=== PATIENT | female | born 1965 | race Caucasian/White ===

== ENCOUNTER 2019-06-06 13:21 | Outpatient (CLI) | payer MEDICARE, SELFPAY ==
--- NOTE | 2019-06-06 13:28 | XR_ITS ---
WS: [id number] LUMBAR SPINE FLEXION AND EXTENSION TECHNIQUE: 3 views of the lumbar spine: Lateral neutral, flexion, and extension views. CLINICAL INFORMATION: SPONDYLOLISTHESIS LUMBAR REGION COMPARISON: FINDINGS: Slight retrolisthesis L3 on L4 and L4 on L5. No instability on flexion-extension. Disc spac e narrowing worse at L3-L4 L4-L5 and L5-S1. Minimal chronic biconcave compression at L3-L5. Moderate facet arthropathy L5-S1. Bony foraminal narrowing. Vascular calcification. XR/XR lumbar spine f/e only [id number] IMPRESSION: No instability on flexion-extension
== END 2019-06-06 13:22 | disposition home or self-care (01) ==
PROVIDERS: Family Provider Internal Medicine; PCP Internal Medicine; Visit Provider Nurse Practitioner
DX: M43.16 Spondylolisthesis, lumbar region (principal)
CPT/HCPCS: 72120

== ENCOUNTER 2019-12-06 13:31 | Outpatient (CLI) | payer MEDICARE, MEDICAID, SELFPAY ==
--- NOTE | 2019-12-06 13:38 | MM_ITS ---
WS: [id number] BILATERAL DIGITAL SCREENING MAMMOGRAM WITH CAD CLINICAL INFORMATION: SCREENING HISTORY: Screening mammogram. No current complaints. COMPARISON: September 28, 2018 TECHNIQUE: Bilateral CC and MLO views. FINDINGS: Fatty-replaced breasts bilaterally. No suspicious focal mass, asymmetry, calcifications, or sfdc architect ural distortion. No evidence of malignancy. Stable tiny punctate calcifications. Breast biopsy marker right areola. MM/[place] [id number] IMPRESSION: BI-RADS: 2-Benign FOLLOW UP: 1 Year Follow-up Recommend return to annual screening mammography.
== END 2019-12-06 13:32 | disposition home or self-care (01) ==
LOC: RADSHAW 13:37
PROVIDERS: PCP Internal Medicine; Visit Provider Internal Medicine
DX: Z12.31 Encounter for screening mammogram for malignant neoplasm of breast (principal)
CPT/HCPCS: 77067

== ENCOUNTER 2020-05-01 14:43 | Outpatient (CLI) | payer MEDICARE, MEDICAID, SELFPAY ==
--- NOTE | 2020-05-01 14:58 | XRR_ITS ---
PROCEDURE INFORMATION: Exam: XR Abdomen, 2 Views Exam date and time: 05/01/2020 3:26 PM Age: 54 years old Clinical indication: Abdominal pain; Acute; Prior surgery; Surgery type: Gb; Patient HX: Diarrhea, abd pain since Wednesday; Additional info: Acute abd pain TECHNIQUE: Imaging protocol: XR of the abdomen. Views: 2 Views. COMPARISON: CR XR KUB [id number] 07/27/2018 8:47 AM FINDINGS: Gastrointestinal tract: Normal. No bowel dilation. There is evidence of cholecystectomy Intraperitoneal space: Normal. No free air. Organs: There is a calcification seen in the projection of the lower pole collecting system of the left kidney measuring 12 mm representing a caliceal stone. This finding was present on prior examination and appears similar Bones/joints: Unremarkable for age. Soft tissues: Chest: Negative for acute cardiac or pulmonary disease. XR/XR acute abdomen series [id number] IMPRESSION: 1. No acute chest abnormality. 2. Negative for acute GI abnormality. 3. Status post cholecystectomy. 4. Stable caliceal stone left kidney
[2020-05-01 15:51] LABS: Basophils % 0.3 %; Eosinophils # 0.1 10^3/uL (0.0-0.8); Eosinophils % 0.4 %; Hematocrit 47.2 % (37.0-47.0); Lymphocytes # 1.3 10^3/uL (0.8-4.8); Lymphocytes % 10.2 %; Mean Corpuscular HGB Conc 31.8 g/dL (30.0-36.0); Mean Corpuscular Hemoglobin 29.7 pg (28.0-34.0); Mean Corpuscular Volume 93.5 fL (81-99); Monocytes # 0.7 10^3/uL (0.2-0.9); Monocytes % 5.3 %; Neutrophils # 10.63 10^3/uL (1.8-7.7); Neutrophils % 83.5 %; Nucleated Red Blood Cells % 0 %; Platelet Count 210 10^3/cmm (130-400); Red Blood Count 5.05 10^6/uL (4.1-5.3); Red Cell Distribution Width 14.7 % (12.1-15.1); White Blood Count 12.7 10^3/uL (4.0-10.0)
[2020-05-01 16:09] LABS: Amylase 27 U/L (28-100); Anion Gap 15.9 (5-19); Blood Urea Nitrogen 12 mg/dL (6-20); Calcium 9.6 mg/dL (8.5-10.5); Carbon Dioxide 25 mmol/L (22-29); Chloride 99 mmol/L (98-107); Glomerular Filtration Rate 75.3 mL/min (90-130); Glucose 151 mg/dL (65-115); Lipase 19 U/L (13-60); Osmolality Calculated 285 mOsm/kg (285-295); Potassium 3.9 mmol/L (3.5-5.1); Sodium 136 mmol/L (136-145)
== END 2020-05-01 14:44 | disposition home or self-care (01) ==
PROVIDERS: PCP Internal Medicine; Visit Provider Nurse Practitioner Family
DX: R10.9 Unspecified abdominal pain (principal); R11.0 Nausea; Z90.49 Acquired absence of other specified parts of digestive tract; N20.0 Calculus of kidney
CPT/HCPCS: 36415; 74022; 80048; 82150; 83690; 85025

== ENCOUNTER 2020-05-01 19:55 | Emergency (ER) | payer MEDICARE, MEDICAID, SELFPAY ==
[2020-05-01 19:58] VITALS: BP 158/81; PULSE 117; RESP 26; TEMP 37.7; O2SAT 94; BMI 41.1
--- NOTE | 2020-05-01 21:14 | W.ED.ABDPA2 ---
HPI - Abdominal Pain General: Chief Complaint: Abdominal Pain Stated Complaint: here earlier/abdominal pain Time Seen by Provider: 05/01/20 21:04 History of Present Illness: HPI narrative: Patient is a 54-year-old female who comes to the ED with abdominal pain, fever, nausea and diarrhea. Past surgical history of hysterectomy and cholecystectomy. Symptoms started on April 28. She rates her abdominal pain a 7 out of 10 and she describes it as a constant achy pain. It is located in the periumbilical region. She says she has had nausea but decreased appetite since pain started. She says her diarrhea is watery. She has had 4-5 episodes of diarrhea today since start of symptoms. Associated Symptoms: Reports diarrhea, fever(s) and nausea; Denies chills, constipation, dysuria, hematochezia, hematuria and vomiting Review of Systems Const: Reports: fever(s) and change in appetite (decrease); Denies: chills or fatigue Eyes: Denies: change in vision or eye discomfort ENMT: Denies: throat pain, odynophagia, nasal discharge or nasal congestion Card: Denies: chest pain, palpitations, edema, swelling of feet/ankles, dyspnea on exertion or orthopnea Resp: Denies: dyspnea, productive cough or non-productive cough GI: Reports: abdominal pain, nausea and diarrhea; Denies: vomiting, constipation or hematochezia : Denies: flank pain, dysuria or hematuria Musc: Denies: neck pain, back pain or extremity swelling Skin/Breast: Denies: rash or new lesions Neuro: Denies: headache(s), numbness in extremities or weakness in extremities PFS ED PFSH: Medical History Depression High cholesterol Hyperthyroidism Type 1 diabetes Social History Smoking and tobacco status: current every day smoker Alcohol intake: never Current occupational status: disabled Physical Exam Const: COMMON NORMALS: patient oriented x3 and alert GENERAL APPEARANCE: cooperative and comfortable NUTRITIONAL APPEARANCE: overweight HENMT: COMMON NORMALS: normocephalic HEAD & SCALP: normocephalic MOUTH: Normal oral and palatal mucosa present and moist mucous membranes abnormal (mild) Details: parched THROAT: posterior oropharynx normal and uvula midline Eye: COMMON NORMALS: Equal, round and reactive pupils present PUPIL: Yes Equal, round and reactive pupils present Neck/C-Spine: COMMON NORMALS: supple GENERAL: Yes normal visual inspection Resp: COMMON NORMALS: normal respiratory effort, No retractions, No use of accessory muscles and clear to auscultation bilaterally AUSCULTATION: clear to auscultation bilaterally Cardio: COMMON NORMALS: regular rate, regular rhythm, S1 normal heart sound present, S2 normal heart sound present, No gallops present (Cardio), No clicks present (Cardio), No murmurs present (Cardio) and Peripheral pulses 2+ throughout RATE: regular rate RHYTHM: regular rhythm HEART SOUNDS: S1 normal heart sound present and S2 normal heart sound present PERIPHERAL PULSES: Peripheral pulses 2+ throughout GI: COMMON NORMALS: Normal to inspection, nondistended, normoactive bowel sounds present, Soft to palpation and no masses PALPATION: Yes Soft to palpation and Yes Tenderness to palpation present (GI) Details: other (Periumbilical tenderness. Negative McBurney's point. Rovsing signs negative.) : COMMON NORMALS: Yes no CVA tenderness BLADDER/KIDNEY EXAM: Yes no CVA tenderness Back/Pelvis: COMMON NORMALS: no CVA tenderness Extremity: COMMON NORMALS: normal to inspection and no pedal edema Neuro: COMMON NORMALS: patient oriented x3 SENSORIUM/ORIENTATION: Yes alert GAIT: Yes Normal gait present Skin: GENERAL SKIN EXAM: dry skin Course Vital Signs: Vital signs: Vital Signs Temperature 99.8 F H 05/01/20 19:58 Pulse Rate 100 05/02/20 00:53 Respiratory Rate 20 H 05/02/20 00:53 Blood Pressure 147/59 05/02/20 00:53 Pulse Oximetry 100 05/02/20 00:53 MDM - Abdominal Pain MDM Narrative: Medical decision making narrative: Patient is a 54-year-old female comes to the ED with abdominal pain, nausea and diarrhea. Periumbilical tenderness upon palpation. Mild signs of dehydration. No other acute findings. White blood cell count 14.7 but rest of CBC and CMP was unremarkable. UA showed no signs of UTI. CT of the abdomen pelvis showed signs of enteritis and no appendicitis seen. Patient was given IV fluids, pain meds and nausea meds while here in the ED and symptoms improved. Patient discharged with a prescription for Bentyl, Cipro, Flagyl, Zofran. Follow-up with PCP in 7 to 10 days. Return to ED precautions given. Patient understood and agreed with plan. Lab Data: Attestation: I reviewed the patient's lab results. Labs: Lab Results 05/01/20 05/01/20 05/01/20 Range/Units 21:34 21:34 22:33 WBC 14.7 H (4.0-10.0) 10^3/ uL RBC 5.00 (4.1-5.3) 10^6/u L Hgb 14.7 (11.5-15.3) g/dL Hct 45.6 (37.0-47.0) % MCV 91.2 (81-99) fL MCH 29.4 (28.0-34.0) pg MCHC 32.2 (30.0-36.0) g/dL RDW 14.6 (12.1-15.1) % Plt Count 216 (130-400) 10^3/c mm MPV 10.7 H (7.4-10.4) fL Neut % (Auto) 84.8 % Lymph % (Auto) 8.0 % Davison % (Auto) 5.6 % Eos % (Auto) 1.0 % Baso % (Auto) 0.3 % Neut # (Auto) 12.47 H (1.8-7.7) 10^3/u L Lymph # (Auto) 1.2 (0.8-4.8) 10^3/u L Davison # (Auto) 0.8 (0.2-0.9) 10^3/u L Eos # (Auto) 0.1 (0.0-0.8) 10^3/u L Baso # (Auto) 0.1 (0.0-0.1) 10^3/u L Nucleated RBC % (a uto) 0 % Nucleated RBCs # 0.0 /100WBC Sodium 134 L (136-145) mmol/L Potassium 3.8 (3.5-5.1) mmol/L Chloride 98 (98-107) mmol/L Carbon Dioxide 22 (22-29) mmol/L Anion Gap 17.8 (5-19) BUN 13 (6-20) mg/dL Creatinine 0.9 (0.5-0.9) mg/dL GFR Calculation 65.8 L (90-130) mL/min Glucose 183 H (65-115) mg/dL Calculated Osmolal ity 283 L (285-295) mOsm/k g Calcium 9.5 (8.5-10.5) mg/dL Total Bilirubin 0.5 (0.15-1.2) mg/dL AST 35 H (0-32) U/L ALT 28 (0-33) U/L Alkaline Phosphata se 66 (35-105) IU/L Total Protein 7.5 (6.6-8.7) g/dL Albumin 3.9 (3.5-5.2) g/dL Globulin 3.6 (1.3-4.6) g/dL Lipase 15 (13-60) U/L Urine Color Gooding (Yellow) Urine Appearance Turbid (CLEAR) Urine pH 5 (5-7) Ur Specific Gravit y 1.030 (1.005-1.030) Urine Protein 1+ H (Negative) Urine Glucose (UA) Norm (Normal) Urine Ketones 1+ H (Negative) Urine Blood Neg (Negative) Urine Nitrate Negative (Negative) Urine Bilirubin 1+ H (Negative) Urine Urobilinogen Norm (Negative) mg/dL Ur Leukocyte Noemi ase Negative (Negative) Urine RBC 5-10 H (0-2) /hpf Urine WBC None (0-5) /hpf Ur Squamous Epith Cells 25-40 H (0-5) /hpf Amorphous Sediment 4+ /hpf Urine Bacteria 2+ H (NONE) /hpf Imaging Data ^: CT Abd/Pel: Attestation: I personally reviewed and interpreted this imaging study as follows: Radiologist's impression: [address] [address] [address] Scan Report Signed Patient: Josi Batista Unit #: [id number] : 1965 Age/Sex: 54 / F ADM Date: 05/01/20 Loc: ER Room/Bed: Attending Dr: Ordering Provider/Ordering MD: Denzel Obregon Date of Service: 05/01/20 Procedure(s): CT abdomen pelvis w con* [id number] Accession Number(s): [id number] Report Number: [id number] PROCEDURE INFORMATION: Exam: CT Abdomen And Pelvis With Contrast Exam date and time: 05/01/2020 9:36 PM Age: 54 years old Clinical indication: Nausea and other: Diarrhea; Abdominal pain; Epigastric; Prior surgery; Surgery type: Gb; Additional info: Abdominal pain, nausea and diarrhea TECHNIQUE: Imaging protocol: Computed tomography of the abdomen and pelvis with intravenous contrast. Radiation optimization: All CT scans at this facility use at least one of these dose optimization techniques: automated exposure control; mA and/or kV adjustment per patient size (includes targeted exams where dose is matched to clinical indication); or iterative reconstruction. Contrast material: OMNI 300; Contrast volume: 95 ml; Contrast route: INTRAVENOUS (IV); COMPARISON: CT abdomen pelvis w con* [id number] 02/27/2015 1:12 PM RADIATION DOSE METRICS: Total DLP (mGy-cm): 1808.17 FINDINGS: Liver: There is a diffuse decrease in hepatic parenchymal density, consistent with moderate fatty infiltration. Gallbladder and bile ducts: There has been a cholecystectomy. Pancreas: The pancreas is normal. Spleen: The spleen is normal. Adrenal glands: The adrenal glands are normal. Kidneys and ureters: There are small simple cysts in both kidneys. There are multiple bilateral renal collecting system calcifications. There is no evidence of hydronephrosis. There is no stone along the course of either ureter. Stomach and bowel: There is some mild inflammatory change in the fat surrounding the cecum and there is mild wall thickening involving the cecum and proximal ascending colon. There is an abnormal loop of small bowel in the mid abdomen with wall thickening and increased mural enhancement such as an image number 46 which could represent some focal enteritis or inflammatory bowel disease. There is no evidence of colitis/diverticulitis. There is mild fluid dilatation of some small bowel loops in the mid abdomen proximal to the abnormal loop of ileum which could represent some focal ileus or mild partial obstruction. Appendix: A normal appendix is identified. Intraperitoneal space: There is no evidence of focal peritoneal fluid collections to suggest abscess formation. Vasculature: The aorta demonstrates mild atherosclerotic calcification. There is no evidence of an abdominal aortic aneurysm. Lymph nodes: There is no evidence of lymphadenopathy. Urinary bladder: Unremarkable as visualized. Reproductive: There has been a hysterectomy. Bones/joints: The lumbar spine demonstrates mild degenerative changes at multiple levels. Soft tissues: Unremarkable. CT/CT abdomen pelvis w con* [id number] IMPRESSION: 1. Focal abnormal loop of small bowel in the mid abdomen which could represent some focal enteritis or inflammatory bowel disease. Clinical correlation and follow-up is suggested. 2. Mild pericecal inflammatory changes and thickening of the right colon which could represent some enteritis. 3. Normal appendix 4. Nephrolithiasis COMMENTS: Consistent with the [employer]'s Incidental Findings Committee white paper (J Am Jasmin Radiol 2018): Any incidental renal lesion less than 1 cm or classified as too small to characterize, or any incidental cystic renal lesion characterized as simple-appearing, is likely benign. No follow-up imaging is recommended for these lesions per consensus recommendations based on imaging criteria. Radiation Dose CTDIVOL = (mGy): DLP = 1808.17 (mGy-cm) Dictated By: Srikanth Enriquez Signed By: Srikanth Enriquez Signed Date/Time: 05/01/202209 DD/ 07 Discharge Plan Discharge Patient Disposition: Home Clinical Impression: Gastroenteritis Condition: Stable Prescriptions: New ciprofloxacin HCl 500 mg tablet 500 mg PO BID 7 Days Qty: 14 RF: 0 ondansetron HCl 4 mg tablet 4 mg PO Q8H Qty: 20 RF: 0 metronidazole 250 mg tablet 500 mg PO TID 7 Days Qty: 42 RF: 0 dicyclomine 20 mg tablet 20 mg PO TID Qty: 30 RF: 0 No Action (DME) diabetic shoes with moded inserts See Rx Instructions .Route .MEDSUPPLY Qty: 1 RF: 0 hydrocortisone [Anti-Itch (HC)] 1 % ointment 1 applic topical BID PRN (Reason: skin irritation) Qty: 30 RF: 0 metformin 500 mg tablet 500 mg PO BID@0900,2100 RF: 0 atorvastatin 80 mg tablet 60 mg PO DAILY@0900 RF: 0 omeprazole 40 mg capsule,delayed release(DR/EC) 40 mg PO DAILY@0900 RF: 0 levothyroxine 25 mcg tablet 25 mcg PO DAILY@0900 RF: 0 albuterol sulfate 90 mcg/actuation HFA aerosol inhaler See Rx Instructions .ROUTE .COMPLEX RF: 0 fluticasone propionate 50 mcg/actuation spray,suspension See Rx Instructions .ROUTE .COMPLEX RF: 0 lisinopril 2.5 mg tablet 2.5 mg PO DAILY@0900 RF: 0 duloxetine 60 mg capsule,delayed release(DR/EC) 60 mg PO BID@0900,2100 RF: 0 Discharge Orders: Discharge ED (Routine); Ordered 05/01/20 Ordered By: Denzel Obregon Referrals: Ana Antoine MD [Primary Care Provider] - Discharge Diet: Advance as tolerated Discharge Activity: Resume usual activity Patient Instructions: Gastroenteritis (ED) Activity Restrictions/Additional Instructions: Follow-up with medical provider as directed in 7-10 days. Take medications as prescribed. Drink plenty of fluids and stay hydrated. Return to the ER or your medical provider if condition worsens after being on antibiotics for 3-4 days. Please read and understand discharge instructions. If any questions, please ask. Coding Level of Care Code ED [employer] Bever[employer] Service Manager for [employer] Fwd Exam Comprehensive
[2020-05-01] MEDS: iohexol 300 mg/mL 100 mL Btl IV (21:39)
[2020-05-01 21:41] LABS: Basophils # 0.1 10^3/uL (0.0-0.1); Basophils % 0.3 %; Eosinophils # 0.1 10^3/uL (0.0-0.8); Hematocrit 45.6 % (37.0-47.0); Hemoglobin 14.7 g/dL (11.5-15.3); Lymphocytes # 1.2 10^3/uL (0.8-4.8); Mean Corpuscular HGB Conc 32.2 g/dL (30.0-36.0); Mean Corpuscular Hemoglobin 29.4 pg (28.0-34.0); Mean Corpuscular Volume 91.2 fL (81-99); Mean Platelet Volume 10.7 fL (7.4-10.4); Monocytes # 0.8 10^3/uL (0.2-0.9); Monocytes % 5.6 %; Neutrophils # 12.47 10^3/uL (1.8-7.7); Neutrophils % 84.8 %; Nucleated Red Blood Cells % 0 %; Platelet Count 216 10^3/cmm (130-400); Red Cell Distribution Width 14.6 % (12.1-15.1); White Blood Count 14.7 10^3/uL (4.0-10.0)
[2020-05-01 21:57] LABS: Alanine Aminotransferase 28 U/L (0-33); Albumin Level 3.9 g/dL (3.5-5.2); Alkaline Phosphatase 66 IU/L (35-105); Aspartate Amino Transferase 35 U/L (0-32); Blood Urea Nitrogen 13 mg/dL (6-20); Calcium 9.5 mg/dL (8.5-10.5); Carbon Dioxide 22 mmol/L (22-29); Chloride 98 mmol/L (98-107); Globulin 3.6 g/dL (1.3-4.6); Glomerular Filtration Rate 65.8 mL/min (90-130); Glucose 183 mg/dL (65-115); Lipase 15 U/L (13-60); Osmolality Calculated 283 mOsm/kg (285-295); Sodium 134 mmol/L (136-145); Total Bilirubin 0.5 mg/dL (0.15-1.2); Total Protein 7.5 g/dL (6.6-8.7)
[2020-05-01 22:06] LABS: Anion Gap 17.8 (5-19); Potassium 3.8 mmol/L (3.5-5.1)
[2020-05-01] MEDS: metroNIDAZOLE 500 MG Tablet PO (22:46)
[2020-05-01] MEDS: ciprofloxacin 500 mg Tablet PO (22:46)
[2020-05-01] MEDS: sodium chloride 0.9% 1,000 ML 999 ML IV (22:47)
[2020-05-01] MEDS: ondansetron 2 mg/ML SDV 2 mL 4 MG IVP (22:47)
[2020-05-01 22:49] VITALS: RESP 16; O2SAT 93
[2020-05-01] MEDS: morphine 4 mg/mL SDV 1 mL IVP (22:49)
[2020-05-01 23:06] LABS: Add Urine Microscopic? YES; Bilirubin Urine 1+ (Negative); Blood Urine Neg (Negative); Glucose Urine UA Norm (Normal); Ketones Urine 1+ (Negative); Leukocyte Esterase Urine Negative (Negative); Nitrate Urine Negative (Negative); Protein Urine 1+ (Negative); Urine Appearance Turbid (CLEAR); Urine Color Orange (Yellow); Urobilinogen Urine Norm (Negative); pH Urine 5 (5-7)
[2020-05-01 23:10] LABS: Squamous Epithelial Cell Urine 25-40 /hpf (0-5)
[2020-05-01 23:11] LABS: Add Urine Culture? No; Amorphous Sediment Urine 4+ /hpf; Bacteria Urine 2+ /hpf
[2020-05-02 00:50] VITALS: RESP 20; O2SAT 97
[2020-05-02] MEDS: morphine 4 mg/mL SDV 1 mL IVP (00:50)
[2020-05-02 00:53] VITALS: BP 147/59; PULSE 100; RESP 20; O2SAT 100
--- NOTE | 2020-05-02 01:57 | PC.NURSE ---
i agree with the assessment
== END 2020-05-02 01:58 | disposition home or self-care (01) ==
PROVIDERS: Emergency Medicine; Emergency Provider Physician Assistant; PCP Internal Medicine
DX: K52.9 Noninfective gastroenteritis and colitis, unspecified (principal); E10.9 Type 1 diabetes mellitus without complications; F17.210 Nicotine dependence, cigarettes, uncomplicated; R10.9 Unspecified abdominal pain; R11.0 Nausea; Z90.49 Acquired absence of other specified parts of digestive tract; N20.0 Calculus of kidney
CPT/HCPCS: 12345; 36415; 74022; 74177; 80048; 80053; 81001; 82150; 83690; 85025; 96361; 96374; 96375; 96376; 99282; 99283; J2270; J2405; J7030; Q9967

== ENCOUNTER 2020-05-31 11:42 | Outpatient (CLI) | payer MEDICARE, MEDICAID, SELFPAY ==
--- NOTE | 2020-05-31 11:49 | USCV_ITS ---
Josi Batista Age: 55 Gender: F : 1965 Exam Date: 05/31/2020 11:50 Ordering Phys: Ana Antoine MD Technologist: Felisa Robles Exam Location: [facility] – [place] Indication: DECREASED RIGHT DORALIS PEDIS PULSE Risk Factors: Previous Vascular Surgery: RIGHT LEFT BP: 135.0 / BP: 125.0/ 0 0 Waveform Velocity (cm/s) Velocity (cm/s) Waveform Biphasic 132.5 Iliac Prox Triphasic 135.6 Iliac Mid Triphasic 138.3 Iliac Distal Triphasic 88.2 BUSINESS SERVICES SPECIALIST SALES Triphasic 98.1 SFA Prox Triphasic 93.7 SFA Mid Triphasic 75.8 SFA Dist Triphasic 44.9 POP Triphasic 59.8 DOCK SUPERVISOR Triphasic 59.8 DPA 1.1 RACHEL FINDINGS RT DOCK SUPERVISOR- 140 RT DPA- 145 Normal Doppler waveforms with normal Doppler velocities on the right lower extremity. Abnormal left and right brachial Doppler studies CONCLUSIONS No significant arterial obstruction in the right lower extremity. Abnormal Doppler waveforms of the brachial arteries bilaterally, may suggest occlusive disease. Clinical correlation is recommended Dr Ariel Bravo MD [facility] (Electronically Signed) Final Date: 31 May 2020 18:20 S
== END 2020-05-31 11:43 | disposition home or self-care (01) ==
LOC: US 11:43
PROVIDERS: PCP Internal Medicine; Visit Provider Internal Medicine
DX: R09.89 Other specified symptoms and signs involving the circulatory and respiratory systems (principal)
CPT/HCPCS: 93926

== ENCOUNTER 2020-07-03 14:41 | Outpatient (CLI) | payer MEDICARE, MEDICAID, SELFPAY ==
--- NOTE | 2020-07-03 15:18 | CT_ITS ---
WS: [id number] CTA THORACIC AORTA WITH AND WITHOUT CONTRAST. HISTORY: PERIPHERAL ARTERY INSUFFICIENCY, TECHNIQUE: CT imaging of the thorax is performed with and without contrast. After noncontrast imaging is performed, CT angiogram is performed during injection of Omnipaque 300; 95 mL IV.. Sagittal and c oronal reconstructions, sagittal and coronal MIP imaging is submitted. All CT scans at [facility] use at least one of these dose optimization techniques: automated exposure control; mA and/o r kV adjustment per patient size (includes targeted exams where dose is matched to clinical indicatio n); or iterative reconstruction. DLP: 1295.15 mGycm COMPARISON: None available. Study was performed on 2 consecutive days in order to fully evaluate the aortic arch and origin of th e subclavian arteries. Focal areas of calcification at the origin of the LEFT subclavian artery from the arch and also at th e origin of the RIGHT subclavian artery from the innominate. Stenosis involving the proximal RIGHT subclavian artery just under 50%. Stenosis involving the origin of the LEFT subclavian artery 70-80%. Mild atherosclerotic changes at the aortic arch. Normal size aorta and pulmonary artery. There is aileen e very mild groundglass attenuation throughout both lungs which is probably a typical for end airways disease or smoking history. No pneumonia or mass. No pleural effusion. There is no adrenal mass. Laxmi or cholecystectomy. Incompletely visualized cyst in the upper RIGHT kidney measures 2.[address]/CT angio chest [id number] IMPRESSION: 1. Focal calcified plaque involving the origin of the LEFT subclavian artery r esulting in 70-80% stenosis. 2. Focal calcified plaque at the origin of the RIGHT subclavian artery resulti ng in just under 50% stenosis.
[2020-07-03] MEDS: iohexol 350 mg/mL 100 mL Btl IV (15:39)
== END 2020-07-03 14:42 | disposition home or self-care (01) ==
PROVIDERS: PCP Internal Medicine; Visit Provider Internal Medicine
DX: I73.9 Peripheral vascular disease, unspecified (principal); I70.8 Atherosclerosis of other arteries
CPT/HCPCS: 71275; Q9967

== ENCOUNTER 2020-08-05 07:41 | Outpatient (CLI) | payer MEDICARE, SELFPAY ==
--- NOTE | 2020-08-05 07:51 | USCV_ITS ---
Josi Batista Age: 55 Gender: F : 1965 Exam Date: 08/05/2020 08:11 Ordering Phys: Ana Antoine MD Technologist: FLO Exam Location: [facility] [place] Indication: SUBCLAVIAN STENOSIS Risk Factors: Previous Vascular Surgery: Right Brachial BP: / Left Brachial BP: / Right Left Velocity (cm/s) Spectral Plaque Velocity (cm/s) Spectral Plaque Syst/Diast Broadening Syst/Diast Broadening 106.90/15.40 Prox CCA 99.00 / 22.90 106.90/24.30 Mid CCA 71.30 / 21.40 47.30/ 11.80 Distal CCA 56.70 / 18.60 59.50/ 23.20 Prox ICA 45.40 / 18.40 70.60/ 23.20 Mid ICA 71.00 / 21.70 92.60/ 33.10 Distal ICA 108.30/ 28.70 118.00 ECA 120.20 0.87 ICA/CCA 1.52 Antegrade Vertebral Antegrade 46.30/ 18.70 cm/s 44.80/ 17.00 cm/s Tri Subclavian Tri 159.1 126.8 0 0 FINDINGS Comparison: none available. No significant elevation of systolic or diastolic velocities. Waveforms are normal. Minimal bilateral, atherosclerosis with no elevation of velocity. CONCLUSIONS Bilateral ICA stenosis less than 50%. Mild carotid atherosclerosis. Dr. Teri Hallman DO (Electronically Signed) Final Date: 05 August 2020 09:07 S
== END 2020-08-05 07:42 | disposition home or self-care (01) ==
LOC: US 07:48
PROVIDERS: PCP Internal Medicine; Visit Provider Internal Medicine
DX: I70.8 Atherosclerosis of other arteries (principal); I65.23 Occlusion and stenosis of bilateral carotid arteries
CPT/HCPCS: 93880

== ENCOUNTER 2020-08-07 12:05 | Outpatient (CLI) | payer MEDICARE, SELFPAY ==
--- NOTE | 2020-08-07 12:15 | XR_ITS ---
WS: [id number] ABDOMEN 1 VIEW(S) HISTORY: N20.9 - Urinary calculus, unspecified COMPARISON: 05/01/2020 Normal bowel gas pattern. 9 mm calcification projects over the LEFT abdomen. This calcification is within the inferior pole of the LEFT kidney on a prior CT. No bone abnormality. Prior cholecystectomy. XR/XR KUB [id number] IMPRESSION: LEFT nephrolithiasis unchanged. No calcification identified in the RIGHT kidney today.
== END 2020-08-07 12:06 | disposition home or self-care (01) ==
LOC: RAD 12:10
PROVIDERS: PCP Internal Medicine; Visit Provider Urology
DX: N20.0 Calculus of kidney (principal)
CPT/HCPCS: 74018; 81003

== ENCOUNTER → 2020-08-28 10:01 | Outpatient (BNVA) | payer MEDICARE, SELFPAY | PROVIDERS: PCP Internal Medicine; Visit Provider Internal Medicine | DX: Z01.812 Encounter for preprocedural laboratory examination (principal); Z20.822 Contact with and (suspected) exposure to COVID-19 | CPT/HCPCS: 87635 ==

== ENCOUNTER 2020-09-04 07:10 | Outpatient (CLI) | payer MEDICARE, MEDICAID, SELFPAY ==
--- NOTE | 2020-09-04 12:48 | PFTS_ITS ---
Date of Study:09/04/20 Date of Dictation: 09/05/2020 MECHANICS: Prebronchodilator forced vital capacity (FVC) is normal. Prebronchodilator forced expiratory volume in one second (FEV1) is normal. FEV1/FVC is normal. FLOW VOLUME LOOP: Normal . LUNG VOLUMES: Not measured DIFFUSING CAPACITY FOR CARBON MONOXIDE: Not measured . INTERPRETATION: The spirometry normal. MTDD
== END 2020-09-04 07:11 | disposition home or self-care (01) ==
PROVIDERS: PCP Internal Medicine; Visit Provider Internal Medicine
DX: F17.200 Nicotine dependence, unspecified, uncomplicated (principal)
CPT/HCPCS: 94060; J7611

== ENCOUNTER → 2022-02-24 09:16 | Outpatient (BNVA) | payer MEDICARE, MEDICAID, SELFPAY | PROVIDERS: PCP Internal Medicine; Visit Provider Podiatrist Foot & Ankle Surgery | DX: M20.21 Hallux rigidus, right foot (principal); M20.22 Hallux rigidus, left foot; E11.42 Type 2 diabetes mellitus with diabetic polyneuropathy; M21.619 Bunion of unspecified foot; M21.41 Flat foot [pes planus] (acquired), right foot; M21.42 Flat foot [pes planus] (acquired), left foot; M20.41 Other hammer toe(s) (acquired), right foot; M20.42 Other hammer toe(s) (acquired), left foot; L60.3 Nail dystrophy; L84 Corns and callosities; Z79.84 Long term (current) use of oral hypoglycemic drugs | CPT/HCPCS: 11056; 11721 ==

== ENCOUNTER 2022-03-09 08:08 | Outpatient (CLI) | payer MEDICARE, MEDICAID, SELFPAY ==
--- NOTE | 2022-03-09 08:19 | MM_ITS ---
WS: [id number] BILATERAL SCREENING DIGITAL TOMOSYNTHESIS MAMMOGRAM WITH CAD HISTORY: SCREENING COMPARISON: 12/06/2019 and 09/28/2018 Bilateral CC and MLO views with tomosynthesis and synthetic mammography submitted. Computer aided det ection analyzed. Breast composition: There are scattered areas of fibroglandular density. No suspicious masses, microc alcifications or architectural distortion. Scattered calcifications. Prior RIGHT breast biopsy clip a jamilancelier. MM/[place] [id number] IMPRESSION: BI-RADS: 2-Benign FOLLOW UP: 1 Year Follow-up
== END 2022-03-09 08:09 | disposition home or self-care (01) ==
LOC: RAD 08:09
PROVIDERS: PCP Nurse Practitioner Family; Visit Provider Nurse Practitioner Family
DX: Z12.31 Encounter for screening mammogram for malignant neoplasm of breast (principal)
CPT/HCPCS: 77063; 77067

== ENCOUNTER → 2022-06-18 08:24 | Outpatient (BNVA) | payer MEDICARE, MEDICAID, SELFPAY | PROVIDERS: PCP Nurse Practitioner Family; Visit Provider Podiatrist Foot & Ankle Surgery | DX: E11.8 Type 2 diabetes mellitus with unspecified complications (principal); M20.21 Hallux rigidus, right foot; M20.22 Hallux rigidus, left foot; E11.42 Type 2 diabetes mellitus with diabetic polyneuropathy; M21.41 Flat foot [pes planus] (acquired), right foot; M21.42 Flat foot [pes planus] (acquired), left foot; M20.41 Other hammer toe(s) (acquired), right foot; M20.42 Other hammer toe(s) (acquired), left foot; L60.3 Nail dystrophy; L84 Corns and callosities; Z79.84 Long term (current) use of oral hypoglycemic drugs; M21.619 Bunion of unspecified foot | CPT/HCPCS: 11056; 11721 ==

== ENCOUNTER → 2022-06-23 12:31 | Outpatient (BNVA) | payer MEDICARE, MEDICAID, SELFPAY | PROVIDERS: PCP Nurse Practitioner Family; Referring Provider Nurse Practitioner Family; Visit Provider Otolaryngology | DX: J32.9 Chronic sinusitis, unspecified (principal); R05.3 Chronic cough; R09.89 Other specified symptoms and signs involving the circulatory and respiratory systems; K21.9 Gastro-esophageal reflux disease without esophagitis; E66.01 Morbid (severe) obesity due to excess calories; Z68.41 Body mass index [BMI] 40.0-44.9, adult; F17.200 Nicotine dependence, unspecified, uncomplicated | CPT/HCPCS: 99203 ==

== ENCOUNTER 2022-07-16 08:17 | Outpatient (CLI) | payer MEDICARE, MEDICAID, SELFPAY ==
--- NOTE | 2022-07-16 08:25 | CT_ITS ---
WS: [id number] CT CHEST WITH INTRAVENOUS CONTRAST HISTORY: SHORT OF BREATH TECHNIQUE: Contiguous 5 mm axial imaging performed on the thorax. Coronal and sagittal reformats are submitted. All CT scans at [facility] use at least one of these dose optimization techniques: automated exposure control; mA and/or kV adjustment per patient size (includes targeted exams where dose is matched to clinical indication); or iterative reconstruction. CONTRAST: Omnipaque 350; 95 mL IV. DLP: 706.70 mGy.cm COMPARISON: 07/03/2020 Lungs and central airway: Mild pulmonary hyperexpansion. There is mild diffuse groundglass attenuatio n. No mass or nodule. Pleura: Normal. No pleural effusion. Heart and pericardium: Very mild RIGHT heart enlargement. Mild flattening of the interventricular sep jose. Mediastinum and adriana: No mediastinum or hilar adenopathy. Vessels: Mild dilatation of the pulmonary artery. Calcified plaque in the origin of the LEFT subclavi an artery. Chest wall and lower neck: No soft tissue masses. Upper abdomen: Enlarged liver with hepatic steatosis. Prior cholecystectomy. The entire liver is not included on this CT. New lobulated nodule measuring 12 x 13 mm in the upper pole LEFT kidney. Hounsfi eld units are low suggesting this is a cyst. Osseous structures: No destructive process. CT/CT chest w con* [id number] IMPRESSION: 1. Mild pulmonary hyperexpansion with no definite mass or consolidation. 2. Mild enlargement of the RIGHT heart with pulmonary artery dilatation. 3. Mild diffuse groundglass attenuation. Consider hypersensitivity pneumonitis or end airways small vessel disease. 4. New 12 x 13 mm cyst upper pole LEFT kidney.
[2022-07-16] MEDS: iohexol 350 mg/mL 500 mL Btl (per mL) IV (08:45)
== END 2022-07-16 08:18 | disposition home or self-care (01) ==
LOC: RAD 08:19
PROVIDERS: PCP Nurse Practitioner Family; Visit Provider Nurse Practitioner Family
DX: R06.02 Shortness of breath (principal); N28.1 Cyst of kidney, acquired; I51.7 Cardiomegaly
CPT/HCPCS: 71260; Q9967

== ENCOUNTER → 2022-07-21 08:28 | Outpatient (BNVA) | payer MEDICARE, MEDICAID, SELFPAY | PROVIDERS: PCP Nurse Practitioner Family; Visit Provider Otolaryngology | DX: J32.9 Chronic sinusitis, unspecified (principal); R09.89 Other specified symptoms and signs involving the circulatory and respiratory systems | CPT/HCPCS: 99213 ==

== ENCOUNTER 2022-08-06 08:39 | Outpatient (CLI) | payer MEDICARE, MEDICAID, SELFPAY ==
--- NOTE | 2022-08-06 09:00 | XR_ITS ---
WS: [id number] Exam: XR KUB [id number] Date/Time of Exam: 08/06/2022 9:08 AM Reason For Exam: Renal Stone No bowel obstruction or free air. Calcifications superimpose both kidneys and apparently represent kn own renal stones. The largest calcifications in the lower pole the left kidney and measures 1.3 cm at greatest diameter. Signs of prior cholecystectomy. No sign of organ enlargement. Regional bony eleme nts are intact. XR/XR KUB [id number] IMPRESSION: 1. Calcifications superimpose both kidneys and apparently represent known renal stones. 2. No acute abdominal process.
== END 2022-08-06 08:40 | disposition home or self-care (01) ==
PROVIDERS: PCP Nurse Practitioner Family; Visit Provider Urology
DX: N20.0 Calculus of kidney (principal); N39.0 Urinary tract infection, site not specified; N28.9 Disorder of kidney and ureter, unspecified; N39.46 Mixed incontinence
CPT/HCPCS: 74018; 81003; 99213

== ENCOUNTER → 2022-08-27 07:53 | Outpatient (BNVA) | payer MEDICARE, MEDICAID, SELFPAY | PROVIDERS: PCP Nurse Practitioner Family; Visit Provider Podiatrist Foot & Ankle Surgery | DX: E11.42 Type 2 diabetes mellitus with diabetic polyneuropathy (principal); L60.3 Nail dystrophy; M20.21 Hallux rigidus, right foot; M20.22 Hallux rigidus, left foot; M21.41 Flat foot [pes planus] (acquired), right foot; M21.42 Flat foot [pes planus] (acquired), left foot; M20.41 Other hammer toe(s) (acquired), right foot; M20.42 Other hammer toe(s) (acquired), left foot; Z79.84 Long term (current) use of oral hypoglycemic drugs; M21.619 Bunion of unspecified foot | CPT/HCPCS: 11056; 11721 ==

== ENCOUNTER 2022-09-10 12:40 | Outpatient (CLI) | payer MEDICARE, MEDICAID, SELFPAY ==
--- NOTE | 2022-09-10 13:04 | XR_ITS ---
WS: [id number] SCREENING DEXA SCAN [facility] CLINICAL INFORMATION: POSTMENOPAUSAL COMPARISON: None. FINDINGS: The L1-L4 bone mineral density measures 1.5. This corresponds to a T score score of 2.7 and Z score o f 2.3. Left femoral neck bone mineral density measures 1.230 g/cm2. This corresponds to a T score of 1.8 and Z score of 1.6. Right femoral neck bone mineral density measures 1.177 g/cm2. This corresponds to a T score 1.3of and Z score of 1.2. Mean femoral neck bone mineral density measures 1.204 g/cm2. This corresponds to a T score of 1.6 and Z score of 1.4. XR/XR DEXA axial skeleton* [id number] IMPRESSION: Normal bone mineralization. Patient's FRAX calculated 10 year probability for major osteoporotic fracture i s 4.5 % and osteoporotic hip fracture is 0.2%.
== END 2022-09-10 12:41 | disposition home or self-care (01) ==
LOC: RAD 12:45
PROVIDERS: PCP Nurse Practitioner Family; Visit Provider Nurse Practitioner Family
DX: Z78.0 Asymptomatic menopausal state (principal)
CPT/HCPCS: 77080

== ENCOUNTER → 2022-09-22 07:55 | Outpatient (BNVA) | payer MEDICARE, MEDICAID, SELFPAY | PROVIDERS: PCP Nurse Practitioner Family; Visit Provider Otolaryngology | DX: J32.9 Chronic sinusitis, unspecified (principal); R09.89 Other specified symptoms and signs involving the circulatory and respiratory systems; K21.9 Gastro-esophageal reflux disease without esophagitis; E66.01 Morbid (severe) obesity due to excess calories; Z68.41 Body mass index [BMI] 40.0-44.9, adult; F17.200 Nicotine dependence, unspecified, uncomplicated | CPT/HCPCS: 99214 ==

== ENCOUNTER 2022-10-15 08:23 | Outpatient (CLI) | payer MEDICARE, MEDICAID, SELFPAY ==
--- NOTE | 2022-10-15 08:45 | US_ITS ---
WS: [id number] ULTRASOUND RENAL TECHNIQUE: Ultrasound examination of both kidneys. CLINICAL INFORMATION: LEFT RENAL LESION COMPARISON: CT abdomen pelvis [address] chest July 16, 2022 FINDINGS: Technically difficult examination due to body habitus and bowel gas. RIGHT: Right kidney is normal in size and appearance. Echogenicity: Normal. Cortical thickness: 1.1 cm; Normal. Hydronephrosis: None. Perinephric fluid: None. Right kidney measures: 12.3 cm x 5.8 cm x 5.3 cm. LEFT: Left kidney is normal in size and appearance. Echogenicity: Normal. Cortical thickness: 1.9 cm; Normal. Hydronephrosis: None. Perinephric fluid: None. Left kidney measures: 16.1 cm x 7.0 cm x 5.4 cm. Normal visualized aorta. US/US renal BI* [id number] IMPRESSION: Difficult examination due to bowel gas and body habitus 1. No hydronephrosis in either kidney. 2. RIGHT upper pole renal cyst measuring 1.3 x 1.2 x 1.6 cm with a simple appe arance. 3. Tiny bilateral nonobstructing renal parenchymal calculi. 4. Bladder is decompressed. 5. No visualized lesions in the LEFT kidney. Recently described lesion upper p ole LEFT kidney on the chest CT is not able to be visualized on this somewhat l imited study. This can be followed up with contrast-enhanced CT abdomen pelvis for better anatomic detail.
== END 2022-10-15 08:24 | disposition home or self-care (01) ==
LOC: RAD 08:24
PROVIDERS: PCP Nurse Practitioner Family; Visit Provider Urology
DX: N39.0 Urinary tract infection, site not specified (principal); N28.9 Disorder of kidney and ureter, unspecified; N28.1 Cyst of kidney, acquired
CPT/HCPCS: 76770; 81003; 99213

== ENCOUNTER → 2022-10-19 09:03 | Outpatient (BNVA) | payer MEDICARE, MEDICAID, SELFPAY | PROVIDERS: PCP Nurse Practitioner Family; Visit Provider Internal Medicine Pulmonary Disease | DX: R06.02 Shortness of breath (principal); J30.2 Other seasonal allergic rhinitis; R06.09 Other forms of dyspnea; R05.3 Chronic cough; E66.01 Morbid (severe) obesity due to excess calories; Z68.41 Body mass index [BMI] 40.0-44.9, adult; F17.200 Nicotine dependence, unspecified, uncomplicated; K21.9 Gastro-esophageal reflux disease without esophagitis; J44.9 Chronic obstructive pulmonary disease, unspecified | CPT/HCPCS: 36415; 80053; 82785; 85025; 86003 ==

== ENCOUNTER 2022-10-28 08:01 | Outpatient (CLI) | payer MEDICARE, MEDICAID, SELFPAY ==
[2022-10-28 08:27] VITALS: PULSE 99; RESP 18; O2SAT 95
[2022-10-28] MEDS: albuterol 2.5 mg/3 mL Neb INHALATION (08:27)
[2022-10-28 08:32] VITALS: PULSE 92
== END 2022-10-28 08:02 | disposition home or self-care (01) ==
LOC: RT 08:03
PROVIDERS: PCP Nurse Practitioner Family; Visit Provider Internal Medicine Pulmonary Disease
DX: R06.02 Shortness of breath (principal); F17.210 Nicotine dependence, cigarettes, uncomplicated; R94.2 Abnormal results of pulmonary function studies
CPT/HCPCS: 94060; 94618; 94726; 94729; J7613

== ENCOUNTER 2022-11-05 07:53 | Outpatient (CLI) | payer MEDICARE, MEDICAID, SELFPAY ==
--- NOTE | 2022-11-05 08:00 | USCV_ITS ---
Lester Josi Age: 57 Gender: F : 1965 Exam Date: 11/05/2022 08:14 Ordering Phys: Axel Henry MD Technologist: Mauricio Batista Exam Location: [facility] – [place], [place] Indication: Check pulmonary art pressure BP: 165 / 85 HR: 85 Rhythm: Sinus Technical Quality: Adequate MEASUREMENTS (Male / Female) Normal Values 2D ECHO LVOT Diameter 2.1 cm LV Ejection Fraction MOD 2C 71.7 % LV Ejection Fraction 2C AL 70.2 % LA Diameter 3.4 cm LA Width 3.6 cm LA Height 4.7 cm RA Width 3.0 cm RA Height 4.3 cm Aorta at Sinotubular Diameter 2.7 cm IVC Diameter 1.5 cm M-MODE Aortic Annulus Diameter 3.0 cm LA Ao Ratio MM 1.1 MV E Point Septal Separation 0.6 cm DOPPLER AV Peak Velocity 161.3 cm/s LVOT Peak Velocity 102.0 cm/s AV Area Cont Eq vti 2.7 cm squared AV Area Cont Eq pk 2.1 cm squared MV Peak Velocity 115.0 cm/s MV Area PHT 3.5 cm squared Mitral E to A Ratio 0.8 MV E' Velocity 48.0 cm/s Mitral E to MV E' Ratio 9.2 Mitral E to LV E' Lateral Ratio 8.6 Mitral E to LV E' Septal Ratio 9.9 Right Atrial Pressure 3.0 mmHg PV Peak Velocity 122.7 cm/s RV Acceleration Time 0.1 s RV Ejection Time 0.2 s RV AcT/ET 0.4 FINDINGS Left Ventricle Left ventricle is normal in size. LV systolic function is normal with EF of 60 to 65%. No regional wall motion abnormalities are seen. Grade 1 diastolic dysfunction Right Ventricle Normal in size and function Right Atrium Normal in size Left Atrium Normal in size Mitral Valve Structurally normal mitral valve. Mild mitral regurgitation. Aortic Valve Structurally normal aortic valve. No significant stenosis or regurgitation. Tricuspid Valve Mild tricuspid regurgitation. Insufficient TR jet to calculate RVSP. Pulmonic Valve Not well visualized Pericardium Normal Aorta Normal in size IVC Appears to be normal CONCLUSIONS LV systolic function is normal with EF of 60 to 65% Grade 1 diastolic dysfunction Mild mitral regurgitation Mild tricuspid regurgitation No comparison studies are available. Eduar Crhistian MD (Electronically Signed) Final Date: 08 November 2022 15:00 S
== END 2022-11-05 07:54 | disposition home or self-care (01) ==
LOC: RAD 07:56
PROVIDERS: PCP Nurse Practitioner Family; Visit Provider Internal Medicine Pulmonary Disease
DX: I50.30 Unspecified diastolic (congestive) heart failure (principal); I07.1 Rheumatic tricuspid insufficiency
CPT/HCPCS: 36415; 80053; 82785; 85025; 86003; 93306; 99204

== ENCOUNTER → 2022-11-18 07:51 | Outpatient (BNVA) | payer MEDICARE, MEDICAID, SELFPAY | PROVIDERS: PCP Nurse Practitioner Family; Visit Provider Podiatrist Foot & Ankle Surgery | DX: E11.42 Type 2 diabetes mellitus with diabetic polyneuropathy (principal); L60.8 Other nail disorders; L84 Corns and callosities; L60.3 Nail dystrophy; M20.21 Hallux rigidus, right foot; M20.22 Hallux rigidus, left foot; M21.619 Bunion of unspecified foot; M21.41 Flat foot [pes planus] (acquired), right foot; M21.42 Flat foot [pes planus] (acquired), left foot; M20.41 Other hammer toe(s) (acquired), right foot; M20.42 Other hammer toe(s) (acquired), left foot; Z79.84 Long term (current) use of oral hypoglycemic drugs | CPT/HCPCS: 11056; 11721 ==

== ENCOUNTER 2022-12-05 18:35 | Emergency (ER) | payer MEDICARE, MEDICAID, SELFPAY ==
[2022-12-05 19:05] VITALS: BP 166/84; PULSE 98; RESP 24; TEMP 36.8; O2SAT 95; BMI 41.5
[2022-12-05 19:27] LABS: Rapid Strep A Test Negative (Negative)
--- NOTE | 2022-12-05 21:18 | XRR_ITS ---
PROCEDURE INFORMATION: Exam: XR Chest Exam date and time: 12/05/2022 9:23 PM Age: 57 years old Clinical indication: Cough TECHNIQUE: Imaging protocol: Radiologic exam of the chest. Views: 1 view. COMPARISON: CR XR chest 2V* [id number] 11/19/2022 9:29 AM FINDINGS: Lungs: There is no consolidation. Pleural spaces: No pleural effusion or pneumothorax. Heart/Mediastinum: The heart and mediastinum are normal in size. Bones/joints: Unremarkable. XR/XR chest 1V portable [id number] IMPRESSION: No acute findings.
--- NOTE | 2022-12-05 21:21 | W.ED.URI ---
HPI - URI/Sore Throat General: Chief Complaint: Upper Respiratory Infection Stated Complaint: throat pain Time Seen by Provider: 12/05/22 21:11 History of Present Illness: Patient is a 57-year-old female that presents to the emergency department with complaints of cough, congestion, sore throat and hemoptysis. Onset of symptoms about a week ago but has progressively worsened. Patient states she is unable to lay down due to increased shortness of breath. Reports chest heaviness Associated symptoms: Reports chills, chest pain, fever(s) and nasal congestion; Deny abdominal pain, diarrhea, ear or mastoid pain, headache(s), nausea, sinus pain or vomiting Review of Systems General: Reports: 10 or more systems reviewed and unremarkable except in HPI and below Const: Reports: fever(s), chills, fatigue, malaise and change in sleep pattern; Denies: change in appetite or change in weight Eyes: Denies: change in vision, eye discomfort, eye discharge or eye redness ENMT: Reports: throat pain, odynophagia, hoarseness and nasal congestion; Denies: enlarged tonsils, ear or mastoid pain, ear discharge, change in hearing, tinnitus, nasal discharge, post nasal drip or sinus pain Card: Reports: chest pain, dyspnea on exertion and orthopnea; Denies: palpitations, irregular heart rhythm, edema or leg pain with exertion Resp: Reports: dyspnea, productive cough and chest congestion; Denies: non-productive cough, wheezing or stridor GI: Denies: abdominal pain, nausea, vomiting, dysphagia, diarrhea, constipation, bloating, GI cramping or hematochezia : Denies: flank pain, difficulty voiding, dysuria, urinary frequency, urinary urgency, urinary hesitancy, oliguria or hematuria Musc: Denies: neck pain, back pain, extremity pain, joint pain, joint swelling, joint redness, joint warmth or muscle weakness Skin/Breast: Denies: rash, pruritus, erythema, photosensitivity or new lesions Neuro: Denies: headache(s), numbness in extremities, weakness in extremities, sensory changes, lack of coordination, difficulty walking, frequent falls, dizziness, confusion, Slurred speech present, difficulty communicating thoughts, seizure-like activity or involuntary movements Endo: Denies: polyuria, polydipsia or tired all the time Aneudy/Lymph: Denies: easy bruising or easy bleeding PFSH ED PFSH: Medical History Depression High cholesterol Hyperthyroidism Mixed stress and urge urinary incontinence Recurrent UTI Renal stones Type 1 diabetes Surgical History History of carpal tunnel release of both wrists History of cholecystectomy History of hysterectomy History of laparoscopy Hx of thumb surgery Family History Brother Diabetes Father , age 73 Diabetes Stroke Sister Diabetes Grandfather Prostate cancer CAD (coronary artery disease) Mother Hypertension Hyperlipidemia Social History Smoking and tobacco status: current every day smoker cigarettes Packs smoked per day: 1.5 Years cigarettes smoked: 40 Alcohol intake: never Substance/Drug Use: never Marital status: Current occupational status: disabled Physical Exam Const: COMMON NORMALS: no acute distress, patient oriented x3 and alert GENERAL APPEARANCE: cooperative ORIENTATION/CONSCIOUSNESS: Yes awake, Yes oriented to person, Yes oriented to place and Yes oriented to time HENMT: COMMON NORMALS: normocephalic and atraumatic HEAD & SCALP: normocephalic and atraumatic FACE & SINUS: normal facial exam MOUTH: Normal oral and palatal mucosa present THROAT: posterior oropharynx normal Eye: COMMON NORMALS: Equal, round and reactive pupils present, EOMs intact bilaterally, conjunctivae normal and no scleral icterus GENERAL EYE: appearance normal, both eyes and all related structures ALIGNMENT: Yes alignment normal PERIORBITAL: periorbital findings normal CONJUNCTIVA: Yes conjunctivae normal PUPIL: Yes Equal, round and reactive pupils present Neck/C-Spine: COMMON NORMALS: full ROM GENERAL: Yes normal visual inspection Lymph: LYMPHATIC: no lymphadenopathy noted Chest: COMMONS NORMALS: normal inspection of the chest Breast/axilla inspection: Yes no chest deformity, asymmetry, normal contours, no nodules, masses, tenderness Resp: COMMON NORMALS: normal respiratory effort, No retractions, No use of accessory muscles and clear to auscultation bilaterally EFFORT & INSPECTION: Yes able to speak in complete sentences, Yes symmetric chest movement and Yes Actively coughing productive, dry and hacking AUSCULTATION: clear to auscultation bilaterally, wheezes expiratory wheezes, left upper and right upper and diminished lung sounds bilateral in the lower lung johnson Cardio: COMMON NORMALS: regular rate, regular rhythm and Peripheral pulses 2+ throughout RATE: regular rate RHYTHM: regular rhythm PERIPHERAL PULSES: Peripheral pulses 2+ throughout GI: COMMON NORMALS: Normal to inspection, nondistended, normoactive bowel sounds present, Soft to palpation, non-tender and No hepatosplenomegaly present INSPECTION: Yes normal to inspection AUSCULTATION: Yes normoactive bowel sounds PALPATION: Yes Soft to palpation and Yes No hepatosplenomegaly present RECTAL EXAM: deferred Extremity: COMMON NORMALS: normal to inspection GENERAL: Yes normal exam except as noted Neuro: COMMON NORMALS: patient oriented x3 SENSORIUM/ORIENTATION: Yes alert, Yes oriented to person, Yes oriented to place and Yes oriented to time CRANIAL NERVES: Yes CN normal except as noted Psych: COMMON NORMALS: mental status grossly normal, Normal thought process present, cooperative, activity/motor behavior normal, denies homicidal ideation and denies suicidal ideation THOUGHT PROCESS: Normal thought process present Skin: COMMON NORMALS: no rashes or lesions noted, no wounds and turgor normal GENERAL SKIN EXAM: no rashes or lesions noted and turgor normal Course Vital Signs: Vital signs: Vital Signs Temperature 98.2 F 12/05/22 19:05 Pulse Rate 97 12/05/22 22:16 Respiratory Rate 18 12/05/22 22:16 Blood Pressure 134/92 12/05/22 22:16 Pulse Oximetry 94 12/05/22 22:16 Oxygen Delivery Me thod Room Air 12/05/22 22:16 MDM - URI/Sore Throat Medical Decision Making Was evaluated in the emergency department for complaints of cough, congestion, chest heaviness chest pain and possibly hemoptysis. Differential diagnosis includes viral illness, COVID, influenza, bacterial pneumonia, CHF, AMI, PE. Patient underwent the following diagnostics: Chest x-ray reveals no acute findings CBC, CMP, D-dimer, BNP, troponin: CBC reveals a mildly elevated white blood cell count without anemia or thrombocytopenia. The chemistry panel reveals no significant electrolyte disturbance. It does show mild elevation in liver enzymes suggestive of viral infection D-dimer was 0.49 not meeting criteria for further evaluation of PE. The BNP was within normal range. The initial troponin was 2 points higher than normal. I obtained a 2-hour troponin which was +0.19 In reviewing her complaints as well as her findings I believe the patient has a viral illness. Can send her home on steroids, Tessalon Perles, Flonase and guaifenesin. Patient should take the medications as prescribed and follow-up with her primary care doctor this week.. Patient may return to the emergency department for new concerning or worsening symptoms Lab Data 12/05/22 21:43 12/05/22 21:43 Radiology Impressions Chest X-Ray 12/05/22 21:18 IMPRESSION: No acute findings. Laboratory Results WBC 10.4 10^3/uL (4.0-10.0) H 12/05/22 21:43 RBC 4.95 10^6/uL (4.1-5.3) 12/05/22 21:43 Hgb 14.2 g/dL (11.5-15.3) 12/05/22 21:43 Hct 45.5 % (37.0-47.0) 12/05/22 21:43 MCV 91.9 fl (81-99) 12/05/22 21:43 MCH 28.7 pg (28.0-34.0) 12/05/22 21:43 MCHC 31.2 g/dL (30.0-36.0) 12/05/22 21:43 RDW 14.6 % (12.1-15.1) 12/05/22 21:43 Plt Count 251 10^3/cmm (130-400) 12/05/22 21:43 MPV 10.7 fL (7.4-10.4) H 12/05/22 21:43 Neut % (Auto) 60.7 % 12/05/22 21:43 Lymph % (Auto) 29.6 % 12/05/22 21:43 [place] % (Auto) 5.9 % 12/05/22 21:43 Eos % (Auto) 3.1 % 12/05/22 21:43 Baso % (Auto) 0.4 % 12/05/22 21:43 Neut # (Auto) 6.34 10^3/uL (1.8-7.7) 12/05/22 21:43 Lymph # (Auto) 3.1 10^3/uL (0.8-4.8) 12/05/22 21:43 [place]ancock # (Auto) 0.6 10^3/uL (0.2-0.9) 12/05/22 21:43 Eos # (Auto) 0.3 10^3/uL (0.0-0.8) 12/05/22 21:43 Baso # (Auto) 0.0 10^3/uL (0.0-0.1) 12/05/22 21:43 Nucleated RBC % (auto) 0 % 12/05/22 21:43 Nucleated RBCs # 0.0 /100WBC 12/05/22 21:43 D-Dimer 0.47 ug/mIFEU (0-0.59) 12/05/22 21:43 Sodium 140 mmol/L (136-145) 12/05/22 21:43 Potassium 4.3 mmol/L (3.5-5.1) 12/05/22 21:43 Chloride 102 mmol/L (98-107) 12/05/22 21:43 Carbon Dioxide 26 mmol/L (22-29) 12/05/22 21:43 Anion Gap 16.3 (5-19) 12/05/22 21:43 BUN 9 mg/dL (6-20) 12/05/22 21:43 Creatinine 0.6 mg/dL (0.5-0.9) 12/05/22 21:43 GFR Calculation 103.8 mL/min (90-130) 12/05/22 21:43 Glucose 143 mg/dL (65-115) H 12/05/22 21:43 Calculated Osmolality 291 mOsm/kg (285-295) 12/05/22 21:43 Calcium 10.2 mg/dL (8.5-10.5) 12/05/22 21:43 Total Bilirubin 0.3 mg/dL (0.15-1.2) 12/05/22 21:43 AST 49 U/L (0-32) H 12/05/22 21:43 ALT 35 U/L (0-33) H 12/05/22 21:43 Alkaline Phosphatase 81 U/L (35-105) 12/05/22 21:43 Troponin T Baseline 12 ng/L (0-10) H 12/05/22 21:43 Troponin T 120 Minute 12.19 ng/L (0-10) H 12/05/22 23:36 Delta Troponin T 0.19 ABS# (0-10) 12/05/22 23:36 NT-Pro-B Natriuret Pep 82 pg/mL (0-125) 12/05/22 21:43 Total Protein 7.1 g/dL (6.6-8.7) 12/05/22 21:43 Albumin 4.1 g/dL (3.5-5.2) 12/05/22 21:43 Globulin 3.0 g/dL (1.3-4.6) 12/05/22 21:43 SARS-CoV-2 Ag (Rapid) negative (Negative) 12/05/22 22:15 Group A Strep Rapid Negative (Negative) 12/05/22 19:12 Discharge Plan Discharge Patient Disposition: Home Clinical Impression: Morbid obesity with BMI of 40.0-44.9, adult, Smoker, COPD (chronic obstructive pulmonary disease), Upper respiratory infection Condition: Stable Prescriptions: New Flonase Allergy Relief 50 mcg/actuation spray,suspension 1 spray intranasal DAILY PRN (Reason: allergy symptoms) Qty: 16 0RF Rx Instructions: administer into each nostril benzonatate 100 mg capsule 100 mg PO TID Qty: 30 0RF prednisone 20 mg tablet 20 mg PO DAILY 4 Days Qty: 4 0RF No Action ketoconazole 2 % cream 1 applic topical BID Qty: 60 0RF (DME) diabetic shoes with moded inserts See Rx Instructions .Route .MEDSUPPLY Qty: 1 0RF Rx Instructions: As directed glipizide 5 mg tablet 5 mg PO DAILY nitrofurantoin monohyd/m-cryst [Macrobid] 100 mg capsule 100 mg PO BID Qty: 30 6RF Rx Instructions: must administer with a meal/food cyanocobalamin (vitamin B-12) 100 mcg tablet 100 mcg PO DAILY buspirone 5 mg tablet 5 mg PO DAILY calcium carbonate [Calcium 500] 500 mg calcium (1,250 mg) tablet,chewable 500 mg PO DAILY levofloxacin 500 mg tablet 500 mg PO DAILY 21 Days Qty: 21 0RF levofloxacin 500 mg tablet 500 mg PO DAILY PRN (Reason: Chronic sinusitis) 21 Days Qty: 21 0RF fluticasone propionate 50 mcg/actuation spray,suspension 2 spray intranasal DAILY PRN Rx Instructions: administer into each nostril hydrocortisone [Anti-Itch (HC)] 1 % ointment 1 applic topical BID PRN (Reason: skin irritation) budesonide-formoterol [Symbicort] 80-4.5 mcg/actuation HFA aerosol inhaler 2 inh inhalation BID Qty: 10.2 6RF (DME) Diabetic shoes with 3 inserts See Rx Instructions .Route .MEDSUPPLY Qty: 1 0RF Rx Instructions: As directed [facility] metformin 500 mg tablet 500 mg PO BID@0900,2100 atorvastatin 80 mg tablet 60 mg PO DAILY@0900 omeprazole 40 mg capsule,delayed release(DR/EC) 40 mg PO DAILY@0900 levothyroxine 25 mcg tablet 25 mcg PO DAILY@0900 albuterol sulfate 90 mcg/actuation HFA aerosol inhaler See Rx Instructions .ROUTE .COMPLEX Rx Instructions: inhaled use as directed fluticasone propionate 50 mcg/actuation spray,suspension See Rx Instructions .ROUTE .COMPLEX Rx Instructions: intranasally use as directed duloxetine 60 mg capsule,delayed release(DR/EC) 60 mg PO BID@0900,2100 ondansetron HCl 4 mg tablet 4 mg PO Q8H Qty: 20 0RF dicyclomine 20 mg tablet 20 mg PO TID Qty: 30 0RF lisinopril 2.5 mg tablet 5 mg PO DAILY@0900 Discharge Orders: Discharge ED (Routine); Ordered 12/06/22 Ordered By: Lidia Card Referrals: Monika Maldonado FNP [Primary Care Provider] - Discharge Diet: Advance as tolerated Discharge Activity: Resume usual activity Patient Instructions: How to Stop Smoking (ED), COPD (Chronic Obstructive Pulmonary Disease) (ED), Chronic Lung Disease and Infection Prevention (ED), Electronic Cigarettes and Your Health (ED), Pain Management Activity Restrictions/Additional Instructions: Please take the medications as prescribed I also want you to parts picker Mucinex and take this twice a day. You need to increase your water to help mobilize the secretions you want to cough up. smoking cessation is also important strategy to help minimize chronic lung disease and infections. Coding Level of Care Code ED Supervisor [employer] for Lamberto Rivera
[2022-12-05] MEDS: ipratropium-albuterol 3 mL Neb INHALATION (21:46)
[2022-12-05 21:47] VITALS: PULSE 88; RESP 18; O2SAT 94
[2022-12-05 21:49] VITALS: PULSE 88; RESP 18; O2SAT 94
[2022-12-05 21:50] LABS: Basophils % 0.4 %; Eosinophils # 0.3 10^3/uL (0.0-0.8); Eosinophils % 3.1 %; Hematocrit 45.5 % (37.0-47.0); Hemoglobin 14.2 g/dL (11.5-15.3); Lymphocytes # 3.1 10^3/uL (0.8-4.8); Lymphocytes % 29.6 %; Mean Corpuscular HGB Conc 31.2 g/dL (30.0-36.0); Mean Corpuscular Hemoglobin 28.7 pg (28.0-34.0); Mean Corpuscular Volume 91.9 fl (81-99); Mean Platelet Volume 10.7 fL (7.4-10.4); Monocytes # 0.6 10^3/uL (0.2-0.9); Monocytes % 5.9 %; Neutrophils # 6.34 10^3/uL (1.8-7.7); Neutrophils % 60.7 %; Nucleated Red Blood Cells % 0 %; Platelet Count 251 10^3/cmm (130-400); Red Blood Count 4.95 10^6/uL (4.1-5.3); Red Cell Distribution Width 14.6 % (12.1-15.1); White Blood Count 10.4 10^3/uL (4.0-10.0)
[2022-12-05 22:05] LABS: D Dimer 0.47 ug/mIFEU (0-0.59)
[2022-12-05 22:16] VITALS: BP 134/92; PULSE 97; RESP 18; O2SAT 94
[2022-12-05 22:19] LABS: Alanine Aminotransferase 35 U/L (0-33); Albumin Level 4.1 g/dL (3.5-5.2); Alkaline Phosphatase 81 U/L (35-105); Anion Gap 16.3 (5-19); Aspartate Amino Transferase 49 U/L (0-32); Blood Urea Nitrogen 9 mg/dL (6-20); Calcium 10.2 mg/dL (8.5-10.5); Carbon Dioxide 26 mmol/L (22-29); Chloride 102 mmol/L (98-107); Glomerular Filtration Rate 103.8 mL/min (90-130); Glucose 143 mg/dL (65-115); NT Pro B Type Natriuretic Pept 82 pg/mL (0-125); Osmolality Calculated 291 mOsm/kg (285-295); Potassium 4.3 mmol/L (3.5-5.1); Sodium 140 mmol/L (136-145); Total Bilirubin 0.3 mg/dL (0.15-1.2); Total Protein 7.1 g/dL (6.6-8.7)
[2022-12-05 22:21] LABS: Troponin(5th) Baseline 12 ng/L (0-10)
--- NOTE | 2022-12-05 22:43 | ECG_ITS ---
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 Measurements Intervals [place] Rate: 93 P: 47 VA: 141 QRS: -7 QRSD: 95 T: 22 QT: 357 QTc: 445 Interpretive Statements SINUS RHYTHM No previous ECG available for comparison Electronically Signed On 12-07-2022 8:32:49 CDT by Eduar Christian M.D. [id number]
[2022-12-05 22:47] LABS: SARS Covid-2 Antigen negative (Negative)
[2022-12-05] MEDS: dexamethasone 10 mg/mL INJ IVP (23:22)
[2022-12-05] MEDS: benzonatate 100 mg Capsule 200 MG PO (23:22)
[2022-12-06 00:02] LABS: Troponin 5 2HR 12.19 ng/L (0-10)
[2022-12-06 00:04] LABS: Troponin 5 2HR Delta 0.19 ABS# (0-10)
[2022-12-06 00:30] VITALS: BP 134/58; PULSE 93; RESP 18; O2SAT 93
== END 2022-12-06 00:36 | disposition home or self-care (01) ==
PROVIDERS: Emergency Medicine; Emergency Provider Nurse Practitioner; PCP Nurse Practitioner Family
DX: J44.9 Chronic obstructive pulmonary disease, unspecified (principal); J06.9 Acute upper respiratory infection, unspecified; F17.210 Nicotine dependence, cigarettes, uncomplicated; E66.01 Morbid (severe) obesity due to excess calories; Z68.41 Body mass index [BMI] 40.0-44.9, adult; Z20.822 Contact with and (suspected) exposure to COVID-19; Z79.84 Long term (current) use of oral hypoglycemic drugs; E10.9 Type 1 diabetes mellitus without complications
CPT/HCPCS: 71045; 80053; 83880; 84484; 85025; 85378; 87081; 87426; 87880; 93005; 94640; 96374; 99285; J1100

== ENCOUNTER 2022-12-08 00:21 | Inpatient (IN) | payer MEDICARE, MEDICAID, SELFPAY ==
[2022-12-08] VITALS (44 sets, daily range): BP systolic 110–212; BP diastolic 61–110; PULSE 86–147; RESP 15–38; TEMP 36.7–37.1; O2SAT 89–99; BMI 41.5; BMI 42.1
--- NOTE | 2022-12-08 00:25 | ECG_ITS ---
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 Measurements Intervals [place] Rate: 112 P: 55 MA: 138 QRS: -28 QRSD: 98 T: 58 QT: 340 QTc: 465 Interpretive Statements SINUS TACHYCARDIA POSSIBLE LEFT ATRIAL ENLARGEMENT [-0.1mV P-WAVE IN V1/V2] SEPTAL MYOCARDIAL INFARCTION , OF INDETERMINATE AGE [40+ ms Q WAVE IN V1/V2] Compared to ECG 12/05/2022 22:43:37 Myocardial infarct finding now present Sinus rhythm no longer present Electronically Signed On 12-08-2022 20:23:07 CDT by Ariel Bravo M.D. [id number]
--- NOTE | 2022-12-08 00:25 | XRR_ITS ---
PROCEDURE INFORMATION: Exam: XR Chest Exam date and time: 12/08/2022 12:29 AM Age: 57 years old Clinical indication: Shortness of breath; Additional info: SOB TECHNIQUE: Imaging protocol: Radiologic exam of the chest. Views: 1 view. COMPARISON: CR (CHEST, ) 12/05/2022 9:23 PM FINDINGS: Lungs: Mild peribronchial thickening and/or mild perihilar linear markings consistent with bronchitis and/or viral pneumonitis and/or reactive airway disease and/or atypical pulmonary interstitial edema. Pleural spaces: Unremarkable. No pleural effusion. No pneumothorax. Heart/Mediastinum: Unremarkable. No cardiomegaly. Bones/joints: Moderate thoracic spondylosis. Soft tissues: Examination is limited secondary to body habitus. XR/XR chest 1V portable [id number] IMPRESSION: Mild peribronchial thickening and/or mild perihilar linear markings consistent with bronchitis and/or viral pneumonitis and/or reactive airway disease and/or atypical pulmonary interstitial edema.
--- NOTE | 2022-12-08 00:27 | ED_ITS ---
HPI - SOB/Dyspnea General: Chief Complaint: Shortness of Breath/Dyspnea Stated Complaint: difficulty breathing Time Seen by Provider: 12/08/22 00:22 Source: patient and EMS Mode of arrival: EMS Limitations: no limitations History of Present Illness: HPI Narrative: 57-year-old female with a history of COPD states is very short of breath tonight she does not wear oxygen at home EMS states that she was 75% on room air with wheezing they gave her terbutaline Decadron along with breathing treatment in route. She states she is feeling improved she is still requiring 5 to 6 L o xygen here she has had a slight cough she denies any fever she was seen here 2 days ago has been on steroids with no improvement Associated symptoms: Deny abdominal pain, chest pain, fever(s), nausea or vomiting Review of Systems Const: Denies: fever(s) or chills Eyes: Denies: eye discomfort ENMT: Denies: throat pain or dental pain Card: Denies: chest pain Resp: Reports: dyspnea and wheezing GI: Denies: abdominal pain, nausea, vomiting or diarrhea : Denies: dysuria Musc: Denies: neck pain or back pain Skin/Breast: Denies: rash Neuro: Denies: headache(s) PFSH ED PFSH: Medical History Depression High cholesterol Hyperthyroidism Mixed stress and urge urinary incontinence Recurrent UTI Renal stones Type 1 diabetes Surgical History History of carpal tunnel release of both wrists History of cholecystectomy History of hysterectomy History of laparoscopy Hx of thumb surgery Family History Brother Diabetes Father , age 73 Diabetes Stroke Sister Diabetes Grandfather Prostate cancer CAD (coronary artery disease) Mother Hypertension Hyperlipidemia Social History Smoking and tobacco status: current every day smoker cigarettes Packs smoked per day: 1.5 Years cigarettes smoked: 40 Alcohol intake: never Substance/Drug Use: never Marital status: Current occupational status: disabled Physical Exam Const: COMMON NORMALS: patient oriented x3 GENERAL APPEARANCE: in distress HENMT: COMMON NORMALS: normocephalic and atraumatic HEAD & SCALP: normocephalic and atraumatic Eye: COMMON NORMALS: conjunctivae normal CONJUNCTIVA: Yes conjunctivae normal Neck/C-Spine: COMMON NORMALS: full ROM and supple Chest: COMMONS NORMALS: normal inspection of the chest and normal palpation of entire chest wall Resp: COMMON NORMALS: No retractions EFFORT & INSPECTION: Yes tachypneic and Yes respiratory distress AUSCULTATION: wheezes Cardio: COMMON NORMALS: regular rate, regular rhythm and No murmurs present (Cardio) RATE: regular rate RHYTHM: regular rhythm GI: COMMON NORMALS: Normal to inspection, nondistended, normoactive bowel sounds present, Soft to palpation, non-tender and no masses PALPATION: Yes Soft to palpation Extremity: COMMON NORMALS: normal to inspection and full ROM Neuro: COMMON NORMALS: patient oriented x3, moves all extremities and no focal motor deficits Psych: COMMON NORMALS: mental status grossly normal, Normal thought process present and cooperative THOUGHT PROCESS: Normal thought process present Skin: COMMON NORMALS: no rashes or lesions noted and no wounds GENERAL SKIN EXAM: no rashes or lesions noted Course Vital Signs: Vital signs: Vital Signs Temperature 98.1 F 12/08/22 00:21 Pulse Rate 109 H 12/08/22 01:46 Respiratory Rate 18 12/08/22 01:46 Blood Pressure 116/83 12/08/22 01:46 Pulse Oximetry 98 12/08/22 01:46 Oxygen Delivery Me thod Room Air 12/08/22 00:44 Oxygen Flow Rate 5 12/08/22 00:21 Fraction of Inspir ed Oxygen 60 12/08/22 01:22 MDM - SOB/Dyspnea Medical Decision Making Patient presents here with shortness of breath she does have a history of COPD with hypoxemia CT shows a pneumonia along with likely COPD exacerbation patient started on IV antibiotics I spoke to the hospitalist and will admit at this time she is requiring BiPAP at this time but is improving. Medical Records I reviewed the patient's medical records. Lab Data I reviewed the patient's lab results. 12/08/22 00:30 12/08/22 00:30 Labs/Radiology: Radiology Impressions Chest X-Ray 12/08/22 00:25 IMPRESSION: Mild peribronchial thickening and/or mild perihilar linear markings consistent with bronchitis and/or viral pneumonitis and/or reactive airway disease and/or atypical pulmonary interstitial edema. Chest CTA 12/08/22 01:01 IMPRESSION: 1. Moderate groundglass opacities and/or interstitial opacities consistent with moderate allergic pneumonitis, infectious pneumonitis or atypical pulmonary edema. 2. Shotty mediastinal and right hilar adenopathy which is probably reactive. 3. No pulmonary embolus or aortic dissection. Laboratory Results WBC 18.0 10^3/uL (4.0-10.0) H 12/08/22 00:30 RBC 4.79 10^6/uL (4.1-5.3) 12/08/22 00:30 Hgb 14.0 g/dL (11.5-15.3) 12/08/22 00:30 Hct 44.8 % (37.0-47.0) 12/08/22 00:30 MCV 93.5 fl (81-99) 12/08/22 00:30 MCH 29.2 pg (28.0-34.0) 12/08/22 00:30 MCHC 31.3 g/dL (30.0-36.0) 12/08/22 00:30 RDW 14.6 % (12.1-15.1) 12/08/22 00:30 Plt Count 290 10^3/cmm (130-400) 12/08/22 00:30 MPV 11.4 fL (7.4-10.4) H 12/08/22 00:30 Neut % (Auto) 57.6 % 12/08/22 00:30 Lymph % (Auto) 34.8 % 12/08/22 00:30 [place] % (Auto) 5.4 % 12/08/22 00:30 Eos % (Auto) 0.7 % 12/08/22 00:30 Baso % (Auto) 0.3 % 12/08/22 00:30 Neut # (Auto) 10.40 10^3/uL (1.8-7.7) H 12/08/22 00:30 Lymph # (Auto) 6.3 10^3/uL (0.8-4.8) H 12/08/22 00:30 [place] # (Auto) 1.0 10^3/uL (0.2-0.9) H 12/08/22 00:30 Eos # (Auto) 0.1 10^3/uL (0.0-0.8) 12/08/22 00:30 Baso # (Auto) 0.1 10^3/uL (0.0-0.1) 12/08/22 00:30 Nucleated RBC % (auto) 0 % 12/08/22 00:30 Nucleated RBCs # 0.0 /100WBC 12/08/22 00:30 Specimen Type Arterial 12/08/22 00:49 Sample Site Brachial, left 12/08/22 00:49 ABG pH 7.33 (7.35-7.45) L 12/08/22 00:49 ABG pCO2 47.4 mmHg (35-45) H 12/08/22 00:49 ABG pO2 61.7 mmHg (80.0-100.0) L 12/08/22 00:49 ABG HCO3 24.7 mmol/L (22-26) 12/08/22 00:49 ABG Base Excess -1.8 mmol/L (-2.0-2.0) 12/08/22 00:49 Renaldo Test N/a 12/08/22 00:49 Hematocrit 41.4 % (37-47) 12/08/22 00:49 Hgb O2 Saturation 89.6 % (95-100) L 12/08/22 00:49 Carboxyhemoglobin 4.7 %THgb (0.4-20.1) 12/08/22 00:49 Methemoglobin < 0.0 % (0.4-1.5) L 12/08/22 00:49 Total Hemoglobin 13.5 g/dL (12-16) 12/08/22 00:49 O2 Delivery Device Nc 12/08/22 00:49 O2 Liters/Min 5.0 % 12/08/22 00:49 FiO2 40.0 % 12/08/22 00:49 Straightening Roll Operator ID Stefanie 12/08/22 00:49 Sodium 137 mmol/L (136-145) 12/08/22 00:30 Potassium 3.9 mmol/L (3.5-5.1) 12/08/22 00:30 Chloride 98 mmol/L (98-107) 12/08/22 00:30 Carbon Dioxide 24 mmol/L (22-29) 12/08/22 00:30 Anion Gap 18.9 (5-19) 12/08/22 00:30 BUN 22 mg/dL (6-20) H 12/08/22 00:30 Creatinine 0.8 mg/dL (0.5-0.9) 12/08/22 00:30 GFR Calculation 74.5 mL/min (90-130) L 12/08/22 00:30 Glucose 439 mg/dL (65-115) H 12/08/22 00:30 Calculated Osmolality 306 mOsm/kg (285-295) H 12/08/22 00:30 Calcium 9.9 mg/dL (8.5-10.5) 12/08/22 00:30 Total Bilirubin 0.2 mg/dL (0.15-1.2) 12/08/22 00:30 AST 33 U/L (0-32) H 12/08/22 00:30 ALT 34 U/L (0-33) H 12/08/22 00:30 Alkaline Phosphatase 101 U/L (35-105) 12/08/22 00:30 NT-Pro-B Natriuret Pep 311 pg/mL (0-125) H 12/08/22 00:30 Total Protein 7.3 g/dL (6.6-8.7) 12/08/22 00:30 Albumin 4.1 g/dL (3.5-5.2) 12/08/22 00:30 Globulin 3.2 g/dL (1.3-4.6) 12/08/22 00:30 SARS-CoV-2 Ag (Rapid) negative (Negative) 12/08/22 01:45 EKG Data EKG 1: I personally reviewed and interpreted this EKG as follows: EKG Interpretation Date: 12/08/22 EKG interpretation time: 00:26 Interpretation: sinus tach hr [address] or t wave bnormalities qrs 98 qtc 406 Discharge Plan Discharge Patient Disposition: Admitted As Inpatient Clinical Impression: Community acquired pneumonia, Acute respiratory failure with hypoxia, COPD (chronic obstructive pulmonary disease) Condition: Stable Prescriptions: No Action ketoconazole 2 % cream 1 applic topical BID Qty: 60 0RF (DME) diabetic shoes with moded inserts See Rx Instructions .Route .MEDSUPPLY Qty: 1 0RF Rx Instructions: As directed glipizide 5 mg tablet 5 mg PO DAILY nitrofurantoin monohyd/m-cryst [Macrobid] 100 mg capsule 100 mg PO BID Qty: 30 6RF Rx Instructions: must administer with a meal/food cyanocobalamin (vitamin B-12) 100 mcg tablet 100 mcg PO DAILY buspirone 5 mg tablet 5 mg PO DAILY calcium carbonate [Calcium 500] 500 mg calcium (1,250 mg) tablet,chewable 500 mg PO DAILY levofloxacin 500 mg tablet 500 mg PO DAILY 21 Days Qty: 21 0RF levofloxacin 500 mg tablet 500 mg PO DAILY PRN (Reason: Chronic sinusitis) 21 Days Qty: 21 0RF fluticasone propionate 50 mcg/actuation spray,suspension 2 spray intranasal DAILY PRN Rx Instructions: administer into each nostril hydrocortisone [Anti-Itch (HC)] 1 % ointment 1 applic topical BID PRN (Reason: skin irritation) budesonide-formoterol [Symbicort] 80-4.5 mcg/actuation HFA aerosol inhaler 2 inh inhalation BID Qty: 10.2 6RF (DME) Diabetic shoes with 3 inserts See Rx Instructions .Route .MEDSUPPLY Qty: 1 0RF Rx Instructions: As directed [facility] metformin 500 mg tablet 500 mg PO BID@0900,2100 atorvastatin 80 mg tablet 60 mg PO DAILY@0900 omeprazole 40 mg capsule,delayed release(DR/EC) 40 mg PO DAILY@0900 levothyroxine 25 mcg tablet 25 mcg PO DAILY@0900 albuterol sulfate 90 mcg/actuation HFA aerosol inhaler See Rx Instructions .ROUTE .COMPLEX Rx Instructions: inhaled use as directed fluticasone propionate 50 mcg/actuation spray,suspension See Rx Instructions .ROUTE .COMPLEX Rx Instructions: intranasally use as directed duloxetine 60 mg capsule,delayed release(DR/EC) 60 mg PO BID@0900,2100 ondansetron HCl 4 mg tablet 4 mg PO Q8H Qty: 20 0RF dicyclomine 20 mg tablet 20 mg PO TID Qty: 30 0RF lisinopril 2.5 mg tablet 5 mg PO DAILY@0900 Flonase Allergy Relief 50 mcg/actuation spray,suspension 1 spray intranasal DAILY PRN (Reason: allergy symptoms) Qty: 16 0RF Rx Instructions: administer into each nostril benzonatate 100 mg capsule 100 mg PO TID Qty: 30 0RF prednisone 20 mg tablet 20 mg PO DAILY 4 Days Qty: 4 0RF Referrals: Monika Maldonado FNP [Primary Care Provider] - Coding Level of Care Code ED Land Surveyor Assistant for Lamberto Rivera
[2022-12-08] MEDS: methylPREDNISolone sod succ 125 MG in water for injection-sterile 2 ML 24 MG IVP (00:33)
[2022-12-08 00:38] LABS: Basophils # 0.1 10^3/uL (0.0-0.1); Basophils % 0.3 %; Eosinophils # 0.1 10^3/uL (0.0-0.8); Eosinophils % 0.7 %; Hematocrit 44.8 % (37.0-47.0); Lymphocytes # 6.3 10^3/uL (0.8-4.8); Lymphocytes % 34.8 %; Mean Corpuscular HGB Conc 31.3 g/dL (30.0-36.0); Mean Corpuscular Hemoglobin 29.2 pg (28.0-34.0); Mean Corpuscular Volume 93.5 fl (81-99); Mean Platelet Volume 11.4 fL (7.4-10.4); Monocytes % 5.4 %; Neutrophils % 57.6 %; Nucleated Red Blood Cells % 0 %; Platelet Count 290 10^3/cmm (130-400); Red Blood Count 4.79 10^6/uL (4.1-5.3); Red Cell Distribution Width 14.6 % (12.1-15.1)
[2022-12-08] MEDS: albuterol 2.5 mg/3 mL Neb 5 MG INHALATION (00:42)
[2022-12-08 01:01] LABS: ABG PCO2 47.4 mmHg (35-45); ABG PH Result 7.33 (7.35-7.45); Arterial Blood Gas Hematocrit 41.4 % (37-47); Base Excess ABG -1.8 mmol/L (-2.0-2.0); Blood Gas Sample Site Brachial, left; Blood Gas Sample Type Arterial; Carboxyhemoglobin 4.7 %THgb (0.4-20.1); HCO3 ABG 24.7 mmol/L (22-26); HGB O2 Sat 89.6 % (95-100); Methemoglobin < 0.0 % (0.4-1.5); Oxygen Device NC; PO2 ABG 61.7 mmHg (80.0-100.0); Total Hemoglobin 13.5 g/dL (12-16)
--- NOTE | 2022-12-08 01:01 | CTR_ITS ---
PROCEDURE INFORMATION: Exam: CTA Chest With Contrast Exam date and time: 12/08/2022 1:12 AM Age: 57 years old Clinical indication: Shortness of breath; Additional info: SOB TECHNIQUE: Imaging protocol: Computed tomographic angiography of the chest with contrast. Exam focused on the arteries. 3D rendering (Not supervised by radiologist): MIP and/or 3D reconstructed images were created by the technologist. Radiation optimization: All CT scans at this facility use at least one of these dose optimization techniques: automated exposure control; mA and/or kV adjustment per patient size (includes targeted exams where dose is matched to clinical indication); or iterative reconstruction. Contrast material: OMNI 350; Contrast volume: 100 ml; Contrast route: INTRAVENOUS (IV); REPORTING DATA: Count of CT and Cardiac NM exams in prior 12 months: This patient has received [address] and 0 known cardiac nuclear medicine studies in the 12 months prior to the current study. COMPARISON: CT angio chest [id number] 07/03/2020 3:31 PM RADIATION DOSE METRICS: Total DLP (mGy-cm): 560.47 FINDINGS: Pulmonary arteries: No pulmonary embolus or aortic dissection. Aorta: Calcification of the thoracic aorta and/or great vessels consistent with atherosclerotic vessel disease. Lungs: Moderate groundglass opacities and/or interstitial opacities consistent with moderate allergic pneumonitis, infectious pneumonitis or atypical pulmonary edema. Pleural spaces: Unremarkable. No pneumothorax. No pleural effusion. Heart: Mild aortic valve calcification. Lymph nodes: Shotty mediastinal and right hilar adenopathy which is probably reactive. Bones/joints: Mild dextroscoliosis. Soft tissues: Unremarkable. CT/CT angio chest PE protcl [id number] IMPRESSION: 1. Moderate groundglass opacities and/or interstitial opacities consistent with moderate allergic pneumonitis, infectious pneumonitis or atypical pulmonary edema. 2. Shotty mediastinal and right hilar adenopathy which is probably reactive. 3. No pulmonary embolus or aortic dissection.
[2022-12-08 01:02] LABS: Alanine Aminotransferase 34 U/L (0-33); Albumin Level 4.1 g/dL (3.5-5.2); Alkaline Phosphatase 101 U/L (35-105); Anion Gap 18.9 (5-19); Aspartate Amino Transferase 33 U/L (0-32); Blood Urea Nitrogen 22 mg/dL (6-20); Calcium 9.9 mg/dL (8.5-10.5); Carbon Dioxide 24 mmol/L (22-29); Chloride 98 mmol/L (98-107); Globulin 3.2 g/dL (1.3-4.6); Glomerular Filtration Rate 74.5 mL/min (90-130); Glucose 439 mg/dL (65-115); NT Pro B Type Natriuretic Pept 311 pg/mL (0-125); Osmolality Calculated 306 mOsm/kg (285-295); Potassium 3.9 mmol/L (3.5-5.1); Sodium 137 mmol/L (136-145); Total Bilirubin 0.2 mg/dL (0.15-1.2); Total Protein 7.3 g/dL (6.6-8.7)
[2022-12-08 01:05] LABS: Slide Review Slide Review Perform
[2022-12-08] MEDS: cefTRIAXone 1,000 MG in sodium chloride 0.9% (plus) 50 ML 100 MG IV (01:58)
[2022-12-08] MEDS: azithromycin 500 MG in sodium chloride 0.9% 250 ML 250 MG IV (02:00)
[2022-12-08 02:10] LABS: SARS Covid-2 Antigen negative (Negative)
--- NOTE | 2022-12-08 02:13 | P.HP_ITS ---
Providers/Chief Complaint Admitting Physician: Denzel Chery MD Primary Care Provider: LEYLA Chappell Chief Complaint: difficulty breathing History of Present Illness Josi Batista is a 57 year old female with a past medical history significant for tobacco use, GERD, obesity, chronic cough, and COPD who presents emergency department with shortness of breath x1 month, worse in prior days. Patient endorses associated productive cough with copious sputum production. She endors es a sensation that she cannot clear the sputum from her throat as well. In the ED, patient was found to be hypoxic. She was initially on nasal cannula support from EMS. She eventually required BiPAP due to increased work of breathing. Patient denies prior home oxygen needs. She does have a CPAP machine but she has not been wearing it consistently due to nasal congestion. She reports she has a nebulizer and is recently been using it about 3-4 times per day. Reports compliance with medications. She does have a history of smoking states that she continues to smoke cigarettes. Review of Systems Narrative: A complete review of systems was obtained and is negative except as stated in HPI. Medications/Allergies Home Medications Medication Instructions Recorded Confirmed Last Taken Type diabetic shoes with moded inserts #1 ea 12/13/19 11/18/22 Unknown Rx albuterol sulfate 90 mcg/actuation See Rx Instructions .Route .COMPLEX 05/01/20 11/18/22 Unknown History aerosol inhaler atorvastatin 80 mg tablet 60 mg PO DAILY@0900 05/01/20/05/0104/28/20 History dicyclomine 20 mg tablet 20 mg PO TID #30 tabs 05/01/20 11/18/22 Unknown Rx duloxetine 60 mg capsule,delayed 60 mg PO BID@0900,209905/01/20 11/18/22 04/28/20 History release fluticasone propionate 50 See Rx Instructions .Route .COMPLEX 05/01/20/05/0104/28/20 History mcg/actuation nasal spray,suspension levothyroxine 25 mcg tablet 25 mcg PO DAILY@0900 05/01/20/05/0104/28/20 History metformin 500 mg tablet 500 mg PO BID@0900,2100 05/01/20 11/18/22 04/28/20 History omeprazole 40 mg capsule,delayed 40 mg PO DAILY@0900 05/01/20 11/18/22 04/28/20 History release ondansetron HCl 4 mg tablet 4 mg PO Q8H #20 tabs 05/01/20 11/18/22 Unknown Rx ketoconazole 2 % topical cream 1 applic topical BID #60 grams 07/02/20 11/18/22 Unknown Rx Diabetic shoes with 3 inserts #1 ea 06/03/21 11/18/22 Unknown Rx buspirone 5 mg tablet 5 mg PO DAILY 02/24/22 11/18/22 Unknown History calcium carbonate 500 mg calcium 500 mg PO DAILY 02/24/22 11/18/22 Unknown History (1,250 mg) chewable tablet (Calcium 500) cyanocobalamin (vitamin B-12) 100 100 mcg PO DAILY 02/24/22 11/18/22 Unknown History mcg tablet lisinopril 2.5 mg tablet 5 mg PO DAILY@0900 02/24/22 11/18/22 Unknown History levofloxacin 500 mg tablet 500 mg PO DAILY 21 days #21 tabs 06/23/22 11/18/22 Unknown Rx levofloxacin 500 mg tablet 500 mg PO DAILY PRN Chronic 06/23/22 11/18/22 Unknown Rx sinusitis 21 days #21 tabs glipizide 5 mg tablet 5 mg PO DAILY 08/06/22 11/18/22 Unknown History nitrofurantoin 100 mg PO BID #30 caps 08/06/22 11/18/22 Unknown Rx monohydrate/macrocrystals 100 mg capsule (Macrobid) budesonide-formoterol HFA 80 2 inh inhalation BID #10.2 grams 10/19/22 11/18/22 Unknown Rx mcg-4.5 mcg/actuation aerosol inhaler (Symbicort) fluticasone propionate 50 2 spray intranasal DAILY PRN 10/19/22 11/18/22 Unknown History mcg/actuation nasal spray,suspension hydrocortisone 1 % topical 1 applic topical BID PRN skin 10/19/22 11/18/22 Unknown History ointment (Anti-Itch irritation (hydrocortisone)) benzonatate 100 mg capsule 100 mg PO TID #30 caps 12/05/22 Unknown Rx fluticasone propionate 50 1 spray intranasal DAILY PRN 12/05/22 Unknown Rx mcg/actuation nasal allergy symptoms #16 grams spray,suspension (Flonase Allergy Relief) prednisone 20 mg tablet 20 mg PO DAILY 4 days #4 tabs 12/06/22 Unknown Rx Allergies Allergy/AdvReac Type Severity Reaction Status Date / Time aspirin Allergy difficulty Verified 11/18/22 07:57 breathing Penicillins Allergy hives Verified 10/19/22 09:11 Sulfa (Sulfonamide Allergy hives Verified 10/19/22 09:11 Antibiotics) PFSH Acute PFSH: Medical History Depression High cholesterol Hyperthyroidism Mixed stress and urge urinary incontinence Recurrent UTI Renal stones Type 1 diabetes Surgical History History of carpal tunnel release of both wrists History of cholecystectomy History of hysterectomy History of laparoscopy Hx of thumb surgery Family History Brother Diabetes Father , age 73 Diabetes Stroke Sister Diabetes Grandfather Prostate cancer CAD (coronary artery disease) Mother Hypertension Hyperlipidemia Social History Smoking and tobacco status: current every day smoker cigarettes Packs smoked p er day: 1.5 Years cigarettes smoked: 40 Alcohol intake: never Substance/Drug Use: never Marital status: Current occupational status: disabled Vitals/I&O/Wt Last Vital Signs Temp 98.1 F 12/08/22 00:21 Pulse 109 H 12/08/22 01:46 Resp 18 12/08/22 01:46 BP 116/83 12/08/22 01:46 Pulse Ox 98 12/08/22 01:46 O2 Del Method Room Air 12/08/22 00:44 O2 Flow Rate 5 12/08/22 00:21 FiO2 60 12/08/22 01:22 12/07/22 12/07/22 12/08/22 14:59 22:59 06:59 Intake Total 2 / 2 Balance 2 / 2 Weight last 48 hrs Weight 120.202 kg Physical Exam Narrative: General: Patient is in severe respiratory distress. Head: Normocephalic. Atraumatic. EOM intact. Neck: JVD difficult to assess due to body habitus. Cardiovascular: Tachycardic. Hypertensive. No gallops. No murmurs. Lungs: Bilateral rhonchi and wheezing present. Increased work of breathing. Tachypnea. Accessory muscle use. Severe respiratory distress. On BiPAP with loud BiPAP noises masking other pulmonary sounds. Skin: No jaundice. No rashes. Abdomen: Normal bowel sounds, abdomen soft and nontender. Extremities: No cyanosis or clubbing. Musculoskeletal: No swollen or erythematous joints. Neurological: Moves all 4 extremities. No myoclonus. Anxious. Data 12/08/22 00:30 12/08/22 00:30 Micro: Microbiology 12/08/22 01:39 Blood Culture - Preliminary Blood SPECIMEN COLLECTED 12/08/22 01:39 Blood Culture - Preliminary Blood SPECIMEN COLLECTED A&P Assessment and plan (1) Community acquired pneumonia: Imaging reviewed Procal, CRP, bacterial urinary antigens Pulmonary toilet Mucinex Aerobika RT eval Respiratory pathogen panel Start meropenem for broad-spectrum gram-negative coverage Start vancomycin, pharmacy to dose for MRSA coverage MRSA swab Solu-Medrol Pulmicort Hold off on anticholinergic agents given copious sputum production Albuterol nebs (2) Acute respiratory failure with hypoxia: Patient found to be in severe respiratory distress requiring noninvasive mechanical ventilation Secondary to pneumonia and COPD Treat underlying infection Provide supplemental respiratory support (3) COPD (chronic obstructive pulmonary disease): Start steroids Nebulizing treatments Continue supplemental respiratory support as above (4) Smoker: Would benefit from cessation (5) Morbid obesity with BMI of 40.0-44.9, adult: Would benefit from weight loss Plan DVT ppx: Lovenox Code: Full Attestations Medical Necessity Statement*: Patient presents with severe respiratory distress found to have pneumonia and acute COPD exacerbation with respiratory failure with expected hospitalization to cross 2 midnights. Critical Care Time: The high probability of a clinically significant, sudden or life threatening deterioration of the patient's respiratory system(s) required my full and direct attention, intervention and personal management. The critical care time is as shown. This time is in addition to time spent performing any reported procedures but includes the following: [x] Data and vital sign review and interpretation [x] Patient assessment, examination and intervention [x] Documentation [x] Medication orders and management Critical Care Time (min): 35 Coding Level of Care Code Acute Code for Chg Fwd Diagnoses Community acquired pneumonia J18.9 Acute respiratory failure with hypoxia J96.01 COPD (chronic obstructive pulmonary disease) J44.9 Smoker F17.200 Morbid obesity with BMI of 40.0-44.9, adult E66.01; Z68.41
--- NOTE | 2022-12-08 03:14 | PC.PHAR ---
Pharmacokinetic dosing service Date: 12/08/22 Time: 313 Objective: Patient: Josi Batista Floor: ICU-2 Age: 57 yo Serum creatinine: 0.8 mg/dL Height: 67.0 Inches Weight (kg): 120.202 Diagnosis: Relevant medical/social history: Cultures and sensitivities: Other labs: Assessment: IBW (kg): 61.60 Dosing wt(kg): 120.202 Estimated Creatinine clearance (ml/min): 77.3 CRCL method: Cockcroft and Gault using ibw(default). Drug selected: Vancomycin Loading dose (mg): 0 Vd (liters): 108.2 (factor used: 0.9 L/kg) Lloyd (hr-1): 0.069 Half life (hrs): 10.05 Recommended dose: 1500 mg Interval: 12 hrs Infusion time (hrs): 1.5 Predicted peak (mcg/mL): 23.4 Predicted trough (mcg/mL): 11.34 Total body weight is being used for vancomycin dosing. Renal function is stable [ ] /unstable [ ] Recommendations: Give Vancomycin 1500 mg q 12 hrs with an expected Cpeak of 23.4 mcg/ml and an expected Ctrough of 11.34 mcg/ml Renal dosing of other antibiotics (review renal dosing of other medications and list guidelines here): Thank you for the consult, will continue to follow. Signature: Amber Rowan [facility]
[2022-12-08 03:27] LABS: Procalcitonin 0.06 ng/mL (0-0.5)
[2022-12-08] MEDS: ondansetron 2 mg/ML SDV 2 mL 4 MG IVP (03:54)
[2022-12-08] MEDS: meropenem 1,000 MG in sodium chloride 0.9% (plus) 50 ML 100 MG IV ×3 (04:04→18:05)
[2022-12-08] MEDS: LORazepam 2 mg/mL INJ 1 mL 0.5 MG IVP (04:16)
[2022-12-08] MEDS: vancomycin 1,500 MG/300 ML PIGGYBACK 200 MG IV ×2 (04:18→15:39)
[2022-12-08] MEDS: albuterol 2.5 mg/3 mL Neb INHALATION ×4 (07:42→19:46)
[2022-12-08] MEDS: budesonide 0.5 mg/2 mL Neb INHALATION ×2 (07:42→19:46)
[2022-12-08 08:20] LABS: Glucose Point of Care 439 mg/dL (70-110)
[2022-12-08] MEDS: methylPREDNISolone sod succ 40 MG in water for injection-sterile 1 ML 12 MG IVP ×3 (09:21→22:59)
[2022-12-08] MEDS: BuSPIRONE 10 mg Tablet 5 MG PO (09:22)
[2022-12-08] MEDS: benzonatate 100 mg Capsule 200 MG PO ×2 (09:22→20:02)
[2022-12-08] MEDS: guaiFENesin 600 mg Tablet 1200 MG PO ×2 (09:22→17:21)
[2022-12-08] MEDS: atorvastatin 40 mg Tablet 80 MG PO (09:22)
[2022-12-08] MEDS: insulin lispro 100 unit/1 mL SUBCUT ×4 (09:25→20:02)
[2022-12-08] MEDS: duloxetine 60 mg Capsule PO ×2 (09:25→20:02)
[2022-12-08 11:27] LABS: Glucose Point of Care 317 mg/dL (70-110)
[2022-12-08 17:06] LABS: Glucose Point of Care 232 mg/dL (70-110)
--- NOTE | 2022-12-08 17:13 | P.PN_ITS ---
Subjective Subjective: He is feeling slightly better. Still coughing. Still requiring BiPAP this morning. Vitals/I&O/Wt Last Vital Signs Temp 98.1 F 12/08/22 03:04 Pulse 98 12/08/22 16:00 Resp 17 12/08/22 16:00 BP 139/78 12/08/22 16:00 Pulse Ox 94 12/08/22 16:00 O2 Del Method Nasal Cannula 12/08/22 15:30 O2 Flow Rate 5 12/08/22 15:30 FiO2 40 12/08/22 11:19 12/08/22 12/08/22 12/08/22 06:59 14:59 22:59 Intake Total 652 / 652 Output Total 550 / 550 Balance 102 / 102 Weight last 48 hrs Weight 122.016 kg Weight 120.202 kg Physical Exam Narrative: On BiPAP this morning Const: COMMON NORMALS: alert GENERAL APPEARANCE: cooperative ORIENTATION/CONSCIOUSNESS: Yes awake HENMT: COMMON NORMALS: oropharynx normal Neck/C-Spine: COMMON NORMALS: no JVD Resp: COMMON NORMALS: normal respiratory effort AUSCULTATION: wheezes and diminished lung sounds Cardio: COMMON NORMALS: no JVD, regular rhythm, S1 normal heart sound present, S2 normal heart sound present and No murmurs present (Cardio) RHYTHM: regular rhythm HEART SOUNDS: S1 normal heart sound present and S2 normal heart sound present GI: COMMON NORMALS: Normal to inspection, nondistended, normoactive bowel sounds present, Soft to palpation and non-tender PALPATION: Yes Soft to palpation Extremity: COMMON NORMALS: no joint enlargement and no pedal edema Neuro: COMMON NORMALS: moves all extremities SENSORIUM/ORIENTATION: Yes alert Skin: COMMON NORMALS: no rashes or lesions noted GENERAL SKIN EXAM: no rashes or lesions noted Urinary Catheter Management: Lazcano: Cath Placed During This Visit: yes Reason for Continuing Indwelling Catheter: Accurate Measurement of Urinary Output in Critically Ill Patients Urinary Catheter Date of Insertion: 12/08/22 Urinary Catheter Time of Insertion: 05:00 Data 12/08/22 00:30 12/08/22 00:30 Micro: Microbiology 12/08/22 01:39 Blood Culture - Preliminary Blood SPECIMEN COLLECTED 12/08/22 01:39 Blood Culture - Preliminary Blood SPECIMEN COLLECTED A&P Assessment and plan (1) Acute respiratory failure with hypoxia: Feeling somewhat better. Maintaining oxygenation. During able to wean down to nasal cannula 5 L. For tonight we will monitor in ICU in case of additional deterioration. Continue oxygen support. ABG appreciated with respiratory acidosis last night. She is awake and alert. BiPAP support as needed. Continue IV steroid. Antibiotic coverage with meropenem, vancomycin. Add MRSA PCR. Noted negative COVID-19 and strep. Collect viral panel due to concern for possible COVID. Noted transaminitis, interstitial changes on imaging. Underlying restrictive lung disease on review of pulmonology documentation from recent visit. (2) Community acquired pneumonia: Continue antibiotic coverage as above. Follow-up sputum culture. Urine bacterial antigens requested, noted not yet collected. Request MRSA PCR. Continues with productive cough. WBC noted 18,000. Predominantly neutrophilic, mild elevation, also lymphocytic and monocytic. Collect respiratory viral panel. Afebrile. Continue expectorant assistance. RT management Albuterol nebs (3) COPD (chronic obstructive pulmonary disease): As above. Continue steroids, empiric antibiotics. Chest Nebulizing treatments Continue supplemental respiratory support as above (4) Smoker: Would benefit from cessation (5) Morbid obesity with BMI of 40.0-44.9, adult: Would benefit from weight loss Plan DVT ppx: Lovenox Code: Full Attestations Medical Necessity Statement*: Continue admission for assessment management of respiratory failure. Coding Level of Care Code Critical Care >/= 30 minutes Critical care time (in minutes): 35 The high probability of a clinically significant, sudden or life threatening deterioration, as referenced in this documentation, required my full and direct attention, intervention and personal management. The critical care time shown is in addition to time spent performing any reported separately billable procedures and includes the following: [x] Data and vital sign review and interpretation [x ] Patient assessment, examination and intervention [x] Medication orders and management [x] Patient/Family updates as able [x] Care Coordination and Documentation. Diagnoses Acute respiratory failure with hypoxia J96.01 Community acquired pneumonia J18.9 COPD (chronic obstructive pulmonary disease) J44.9 Smoker F17.200 Morbid obesity with BMI of 40.0-44.9, adult E66.01; Z68.41
[2022-12-08 20:01] LABS: Glucose Point of Care 201 mg/dL (70-110)
[2022-12-08 20:58] LABS: Adenovirus Not Detected (NOT DETECT); Chlamydia Pneumoniae Not Detected (NOT DETECT); Coronavirus 229E,HKU1,NL63,OC4 Not Detected (NOT DETECT); Human Metapneumovirus Not Detected (NOT DETECT); Human Rhinovirus/Enterovirus Not Detected (NOT DETECT); Influenza A Not Detected (NOT DETECT); Influenza A H1 Not Detected (NOT DETECT); Influenza A H1-2009 Not Detected (NOT DETECT); Influenza A H3 Not Detected (NOT DETECT); Influenza B Not Detected (NOT DETECT); Mycoplasma Pneumoniae Not Detected (NOT DETECT); Parainfluenza Virus Type 1 Not Detected (NOT DETECT); Parainfluenza Virus Type 2 Not Detected (NOT DETECT); Parainfluenza Virus Type 3 Not Detected (NOT DETECT); Parainfluenza Virus Type 4 Not Detected (NOT DETECT); Respiratory Syncytial Virus A Not Detected (NOT DETECT); Respiratory Syncytial Virus B Not Detected (NOT DETECT); SARS-COV-2 Not Detected (NOT DETECT)
[2022-12-09] VITALS (23 sets, daily range): BP systolic 98–160; BP diastolic 58–76; PULSE 60–98; RESP 12–25; TEMP 36.5–36.6; O2SAT 94–100; BMI 42.1
[2022-12-09] MEDS: albuterol 2.5 mg/3 mL Neb INHALATION ×7 (00:07→23:30)
[2022-12-09] MEDS: meropenem 1,000 MG in sodium chloride 0.9% (plus) 50 ML 100 MG IV ×3 (03:06→18:18)
[2022-12-09] MEDS: vancomycin 1,500 MG/300 ML PIGGYBACK 200 MG IV (03:06)
[2022-12-09 04:22] LABS: Basophils % 0.1 %; Hemoglobin 13.1 g/dL (11.5-15.3); Lymphocytes # 1.4 10^3/uL (0.8-4.8); Lymphocytes % 9.4 %; Mean Corpuscular HGB Conc 30.5 g/dL (30.0-36.0); Mean Corpuscular Hemoglobin 28.7 pg (28.0-34.0); Mean Corpuscular Volume 94.3 fl (81-99); Mean Platelet Volume 10.9 fL (7.4-10.4); Monocytes # 0.5 10^3/uL (0.2-0.9); Monocytes % 3.7 %; Neutrophils # 12.69 10^3/uL (1.8-7.7); Neutrophils % 85.9 %; Nucleated Red Blood Cells % 0 %; Platelet Count 226 10^3/cmm (130-400); Red Blood Count 4.56 10^6/uL (4.1-5.3); Red Cell Distribution Width 14.6 % (12.1-15.1); White Blood Count 14.8 10^3/uL (4.0-10.0)
[2022-12-09 04:44] LABS: Alanine Aminotransferase 26 U/L (0-33); Albumin Level 3.6 g/dL (3.5-5.2); Alkaline Phosphatase 64 U/L (35-105); Anion Gap 14.1 (5-19); Aspartate Amino Transferase 22 U/L (0-32); Blood Urea Nitrogen 22 mg/dL (6-20); Calcium 9.9 mg/dL (8.5-10.5); Carbon Dioxide 26 mmol/L (22-29); Chloride 99 mmol/L (98-107); Globulin 2.4 g/dL (1.3-4.6); Glomerular Filtration Rate 103.8 mL/min (90-130); Glucose 258 mg/dL (65-115); Osmolality Calculated 290 mOsm/kg (285-295); Potassium 5.1 mmol/L (3.5-5.1); Sodium 134 mmol/L (136-145); Total Bilirubin 0.5 mg/dL (0.15-1.2)
[2022-12-09] MEDS: budesonide 0.5 mg/2 mL Neb INHALATION ×2 (07:29→19:59)
[2022-12-09 07:30] LABS: Glucose Point of Care 261 mg/dL (70-110)
[2022-12-09] MEDS: insulin lispro 100 unit/1 mL SUBCUT ×4 (08:03→20:45)
[2022-12-09] MEDS: methylPREDNISolone sod succ 40 MG in water for injection-sterile 1 ML IVP ×3 (08:03→23:39)
[2022-12-09] MEDS: BuSPIRONE 10 mg Tablet 5 MG PO (08:04)
[2022-12-09] MEDS: guaiFENesin 600 mg Tablet 1200 MG PO ×2 (08:04→18:18)
[2022-12-09] MEDS: atorvastatin 40 mg Tablet 80 MG PO (08:04)
[2022-12-09] MEDS: duloxetine 60 mg Capsule PO ×2 (08:04→20:44)
[2022-12-09] MEDS: benzonatate 100 mg Capsule 200 MG PO ×3 (08:04→20:44)
--- NOTE | 2022-12-09 11:04 | PM.PN ---
Subjective Subjective: He is feeling slightly better. Still congested, coughing, difficulty bringing up phlegm. Discussed with her flutter valve. Vitals/I&O/Wt Last Vital Signs Temp 98.5 F 12/08/22 20:00 Pulse 88 12/09/22 11:00 Resp 16 12/09/22 11:00 BP 118/58 12/09/22 08:00 Pulse Ox 96 12/09/22 11:00 O2 Del Method Nasal Cannula 12/09/22 11:00 O2 Flow Rate 3 12/09/22 11:00 FiO2 45 12/09/22 07:31 12/08/22 12/09/22 12/09/22 22:59 06:59 14:59 Intake Total 351 / 402 401 / 803 300 / 300 Output Total 2600 / 2600 Balance -2249 / -2198 401 / -1797 300 / 300 Weight last 48 hrs Weight 122.016 kg Weight 122.016 kg Weight 120.202 kg Physical Exam Narrative: Nasal cannula 4/2 L. Sitting up at edge of bed. Const: COMMON NORMALS: patient oriented x3 and alert GENERAL APPEARANCE: cooperative ORIENTATION/CONSCIOUSNESS: Yes awake HENMT: COMMON NORMALS: oropharynx normal Neck/C-Spine: COMMON NORMALS: no JVD Resp: COMMON NORMALS: normal respiratory effort AUSCULTATION: no wheezes and diminished lung sounds Cardio: COMMON NORMALS: no JVD, regular rhythm, S1 normal heart sound present, S2 normal heart sound present and No murmurs present (Cardio) RHYTHM: regular rhythm HEART SOUNDS: S1 normal heart sound present and S2 normal heart sound present GI: COMMON NORMALS: Normal to inspection, nondistended, normoactive bowel sounds present, Soft to palpation and non-tender PALPATION: Yes Soft to palpation Extremity: COMMON NORMALS: no joint enlargement and no pedal edema Neuro: COMMON NORMALS: patient oriented x3 and moves all extremities SENSORIUM/ORIENTATION: Yes alert Skin: COMMON NORMALS: no rashes or lesions noted GENERAL SKIN EXAM: no rashes or lesions noted Urinary Catheter Management: Lazcano: Cath Placed During This Visit: yes Reason for Continuing Indwelling Catheter: Accurate Measurement of Urinary Output in Critically Ill Patients Urinary Catheter Date of Insertion: 12/08/22 Urinary Catheter Time of Insertion: 05:00 Data 12/09/22 03:51 12/09/22 03:51 Micro: Microbiology 12/08/22 19:00 Bacterial Antigens - Final Urine,Voided 12/08/22 01:39 Blood Culture - Preliminary Blood NEGATIVE TO DATE 12/08/22 01:39 Blood Culture - Preliminary Blood NEGATIVE TO DATE A&P Assessment and plan (1) Acute respiratory failure with hypoxia: She appears to be showing slow improvement. Persistent respiratory failure, still requiring 4.5 L of oxygen. Diminished air entry. Not wheezing longer. Feels congested, cannot bring phlegm. Continue Mucinex. Add flutter valve. Discussed with RT. Continue oxygen support. Wean down as tolerating. Continue. Antibiotic coverage with meropenem, vancomycin. Continue Solu-Medrol. Noted urine bacterial antigens negative. Viral panel negative. Sputum culture if able to provide. Blood cultures preliminary negative. Continue BiPAP support as needed. Transfer out of ICU. Pending MRSA PCR. Noted negative COVID-19 and strep. Collect viral panel due to concern for possible COVID. Noted transaminitis, interstitial changes on imaging. Underlying restrictive lung disease on review of pulmonology documentation from recent visit. (2) Community acquired pneumonia: Continue antibiotic coverage as above. Follow-up sputum culture. As above. Pending MRSA PCR. Continues with productive cough. WBC with improvement to 14.8, predominantly neutrophilic 12.69. Afebrile. Discussed with her different diagnosis, allergic pneumonitis, other atypical pneumonia. Noted restrictive lung disease on PFT. Follow-up with pulmonology. Continue expectorant assistance. RT management Albuterol nebs (3) COPD (chronic obstructive pulmonary disease): As above. Continue steroids, empiric antibiotics. Nebulizing treatments Continue supplemental respiratory support as above (4) Smoker: Would benefit from cessation (5) Morbid obesity with BMI of 40.0-44.9, adult: Would benefit from weight loss Plan DVT ppx: Lovenox Code: Full Attestations Medical Necessity Statement*: Continue admission for assessment management of respiratory failure. Diagnoses Acute respiratory failure with hypoxia J96.01 Community acquired pneumonia J18.9 COPD (chronic obstructive pulmonary disease) J44.9 Smoker F17.200 Morbid obesity with BMI of 40.0-44.9, adult E66.01; Z68.41
[2022-12-09 11:39] LABS: Glucose Point of Care 297 mg/dL (70-110)
[2022-12-09 15:58] LABS: Vancomycin Trough 9.1 ug/mL (10-15)
[2022-12-09] MEDS: vancomycin 1,250 MG/250 ML PIGGYBACK 250 MG IV (16:54)
[2022-12-09 17:27] LABS: Glucose Point of Care 240 mg/dL (70-110)
[2022-12-09 20:31] LABS: Glucose Point of Care 381 mg/dL (70-110)
[2022-12-10] VITALS (17 sets, daily range): BP systolic 136–187; BP diastolic 70–78; PULSE 76–106; RESP 12–18; TEMP 36.4–36.8; O2SAT 93–100
[2022-12-10] MEDS: vancomycin 1,250 MG/250 ML PIGGYBACK 250 MG IV ×3 (01:13→17:25)
[2022-12-10] MEDS: meropenem 1,000 MG in sodium chloride 0.9% (plus) 50 ML 100 MG IV ×3 (02:20→19:35)
[2022-12-10] MEDS: albuterol 2.5 mg/3 mL Neb INHALATION ×6 (03:28→23:50)
[2022-12-10 05:13] LABS: Basophils % 0.1 %; Hematocrit 44.7 % (37.0-47.0); Hemoglobin 14.1 g/dL (11.5-15.3); Lymphocytes % 8.3 %; Mean Corpuscular HGB Conc 31.5 g/dL (30.0-36.0); Mean Corpuscular Hemoglobin 29.4 pg (28.0-34.0); Mean Corpuscular Volume 93.3 fl (81-99); Mean Platelet Volume 10.8 fL (7.4-10.4); Monocytes # 0.4 10^3/uL (0.2-0.9); Monocytes % 2.8 %; Neutrophils # 10.92 10^3/uL (1.8-7.7); Neutrophils % 87.4 %; Nucleated Red Blood Cells % 0 %; Platelet Count 231 10^3/cmm (130-400); Red Blood Count 4.79 10^6/uL (4.1-5.3); Red Cell Distribution Width 14.5 % (12.1-15.1); White Blood Count 12.5 10^3/uL (4.0-10.0)
[2022-12-10 05:37] LABS: Alanine Aminotransferase 24 U/L (0-33); Albumin Level 3.8 g/dL (3.5-5.2); Alkaline Phosphatase 70 U/L (35-105); Anion Gap 16.8 (5-19); Aspartate Amino Transferase 15 U/L (0-32); Blood Urea Nitrogen 28 mg/dL (6-20); Calcium 9.6 mg/dL (8.5-10.5); Carbon Dioxide 26 mmol/L (22-29); Chloride 96 mmol/L (98-107); Globulin 2.5 g/dL (1.3-4.6); Glomerular Filtration Rate 103.8 mL/min (90-130); Glucose 296 mg/dL (65-115); Osmolality Calculated 294 mOsm/kg (285-295); Potassium 4.8 mmol/L (3.5-5.1); Sodium 134 mmol/L (136-145); Total Bilirubin 0.5 mg/dL (0.15-1.2); Total Protein 6.3 g/dL (6.6-8.7)
[2022-12-10 06:21] LABS: Glucose Point of Care 288 mg/dL (70-110)
[2022-12-10] MEDS: budesonide 0.5 mg/2 mL Neb INHALATION ×2 (07:22→20:39)
[2022-12-10] MEDS: atorvastatin 40 mg Tablet 80 MG PO (08:23)
[2022-12-10] MEDS: guaiFENesin 600 mg Tablet 1200 MG PO ×2 (08:23→17:25)
[2022-12-10] MEDS: BuSPIRONE 10 mg Tablet 5 MG PO (08:23)
[2022-12-10] MEDS: methylPREDNISolone sod succ 40 MG in water for injection-sterile 1 ML 12 MG IVP (08:24)
[2022-12-10] MEDS: insulin lispro 100 unit/1 mL SUBCUT ×4 (08:24→20:30)
[2022-12-10] MEDS: benzonatate 100 mg Capsule 200 MG PO ×3 (08:24→20:24)
[2022-12-10] MEDS: duloxetine 60 mg Capsule PO ×2 (08:27→20:24)
[2022-12-10 11:02] LABS: Glucose Point of Care 328 mg/dL (70-110)
--- NOTE | 2022-12-10 11:33 | P.PN_ITS ---
Subjective Subjective: Today she is feeling slightly better still. Still having cough, still phlegm which she cannot bring up. Vitals/I&O/Wt Last Vital Signs Temp 97.7 F 12/10/22 11:16 Pulse 106 H 12/10/22 11:25 Resp 18 12/10/22 11:25 BP 187/73 12/10/22 11:16 Pulse Ox 96 12/10/22 11:25 O2 Del Method Nasal Cannula 12/10/22 11:25 O2 Flow Rate 2 12/10/22 11:25 FiO2 45 12/10/22 07:24 12/09/22 12/10/22 12/10/22 22:59 06:59 14:59 Intake Total 301 / 952 301.000 / 1253.000 611 / 611 Output Total 1350 / 2650 550 / 3200 1700 / 1700 Balance -1049 / -1698 -249.000 / -1947.000 -1089 / -1089 Weight last 48 hrs Weight 120.854 kg Weight 122.016 kg Physical Exam Narrative: Nasal cannula 2 L. Sitting up at edge of bed. Const: COMMON NORMALS: patient oriented x3 and alert GENERAL APPEARANCE: cooperative ORIENTATION/CONSCIOUSNESS: Yes awake HENMT: COMMON NORMALS: oropharynx normal Neck/C-Spine: COMMON NORMALS: no JVD Resp: COMMON NORMALS: normal respiratory effort AUSCULTATION: no wheezes and diminished lung sounds Cardio: COMMON NORMALS: no JVD, regular rhythm, S1 normal heart sound present, S2 normal heart sound present and No murmurs present (Cardio) RHYTHM: regular rhythm HEART SOUNDS: S1 normal heart sound present and S2 normal heart sound present GI: COMMON NORMALS: Normal to inspection, nondistended, normoactive bowel sounds present, Soft to palpation and non-tender PALPATION: Yes Soft to palpation Extremity: COMMON NORMALS: no joint enlargement and no pedal edema Neuro: COMMON NORMALS: patient oriented x3 and moves all extremities SENSORIUM/ORIENTATION: Yes alert Skin: COMMON NORMALS: no rashes or lesions noted GENERAL SKIN EXAM: no rashes or lesions noted Urinary Catheter Management: Lazcano: Cath Placed During This Visit: yes, but has since been removed by the nurse Reason for Continuing Indwelling Catheter: Acute Urinary Retention or Obs truction Urinary Catheter Date of Insertion: 12/08/22 Urinary Catheter Time of Insertion: 05:00 Date Urinary Catheter Removed: 12/10/22 Time Urinary Catheter Discontinued: 10:36 Data 12/10/22 04:49 12/10/22 04:49 Micro: Microbiology 12/08/22 19:00 MRSA Culture - Final Nose 12/08/22 19:00 Bacterial Antigens - Final Urine,Voided A&P Assessment and plan (1) Acute respiratory failure with hypoxia: Still difficult to bring up phlegm. Continue Mucinex. Add humidifier to the O2. If still having difficulty consider 3% saline nebulization. Continue flutter valve. Restart Singulair. Continue to wean down oxygen support as tolerating. Noted positive MRSA PCR. Continue vancomycin. We will try to switch over to prednisone. DC Lazcano. Noted urine bacterial antigens negative. Viral panel negative. Sputum culture if able to provide. Blood cultures preliminary negative. Noted negative COVID-19 and strep. Collect viral panel due to concern for possible COVID. Transaminitis now resolved. Underlying restrictive lung disease on review of pulmonology documentation from recent visit. (2) Community acquired pneumonia: As above. + MRSA PCR. Continues with productive cough with difficult to bring up phlegm. Afebrile. Leukocytosis noted with improvement to 12.5, still neutrophilia 10.92. Discussed with her different diagnosis, allergic pneumonitis, other atypical pneumonia. Noted restrictive lung disease on PFT. Follow-up with pulmonology. Continue expectorant assistance. RT management Albuterol nebs (3) COPD (chronic obstructive pulmonary disease): As above. I just steroid as above, empiric antibiotics. Nebulizing treatments Continue supplemental respiratory support as above (4) Smoker: Would benefit from cessation (5) Morbid obesity with BMI of 40.0-44.9, adult: Would benefit from weight loss Plan HTN: Restart lisinopril. DVT ppx: Lovenox Code: Full Discussed with case management. Not normally on oxygen. Attestations Medical Necessity Statement*: Continue admission for assessment and management of improving respiratory failure, pneumonia, in a lady with underlying restrictive lung disease. Diagnoses Acute respiratory failure with hypoxia J96.01 Community acquired pneumonia J18.9 COPD (chronic obstructive pulmonary disease) J44.9 Smoker F17.200 Morbid obesity with BMI of 40.0-44.9, adult E66.01; Z68.41
[2022-12-10] MEDS: montelukast sodium 10 mg Tablet PO (11:46)
[2022-12-10] MEDS: pantoprazole DR 40 mg Tablet PO (11:46)
[2022-12-10] MEDS: lisinopril 5 mg Tablet PO (11:46)
[2022-12-10 17:14] LABS: Vancomycin Trough 10.7 ug/mL (10-15)
[2022-12-10 18:28] LABS: Glucose Point of Care 299 mg/dL (70-110)
[2022-12-10 20:50] LABS: Glucose Point of Care 270 mg/dL (70-110)
[2022-12-11] VITALS (8 sets, daily range): BP systolic 149–155; BP diastolic 78–79; PULSE 69–91; RESP 14–17; TEMP 36.4–37; O2SAT 93–98
[2022-12-11] MEDS: vancomycin 1,250 MG/250 ML PIGGYBACK 250 MG IV ×2 (01:08→08:52)
[2022-12-11] MEDS: meropenem 1,000 MG in sodium chloride 0.9% (plus) 50 ML 100 MG IV ×2 (03:20→10:51)
[2022-12-11] MEDS: albuterol 2.5 mg/3 mL Neb INHALATION ×2 (04:50→07:59)
[2022-12-11 05:47] LABS: Basophils % 0.1 %; Eosinophils % 0.1 %; Hematocrit 41.6 % (37.0-47.0); Hemoglobin 13.5 g/dL (11.5-15.3); Lymphocytes # 3.1 10^3/uL (0.8-4.8); Lymphocytes % 22.4 %; Mean Corpuscular HGB Conc 32.5 g/dL (30.0-36.0); Mean Corpuscular Hemoglobin 29.2 pg (28.0-34.0); Mean Platelet Volume 11.1 fL (7.4-10.4); Monocytes % 7.3 %; Neutrophils # 9.52 10^3/uL (1.8-7.7); Nucleated Red Blood Cells % 0 %; Platelet Count 214 10^3/cmm (130-400); Red Blood Count 4.62 10^6/uL (4.1-5.3); Red Cell Distribution Width 14.5 % (12.1-15.1); White Blood Count 13.8 10^3/uL (4.0-10.0)
[2022-12-11 06:07] LABS: Alanine Aminotransferase 26 U/L (0-33); Albumin Level 3.7 g/dL (3.5-5.2); Alkaline Phosphatase 61 U/L (35-105); Blood Urea Nitrogen 25 mg/dL (6-20); Calcium 9.1 mg/dL (8.5-10.5); Carbon Dioxide 23 mmol/L (22-29); Chloride 98 mmol/L (98-107); Globulin 2.5 g/dL (1.3-4.6); Glomerular Filtration Rate 128.1 mL/min (90-130); Glucose 194 mg/dL (65-115); Osmolality Calculated 286 mOsm/kg (285-295); Sodium 133 mmol/L (136-145); Total Bilirubin 0.5 mg/dL (0.15-1.2); Total Protein 6.2 g/dL (6.6-8.7)
[2022-12-11 06:12] LABS: Anion Gap 16.5 (5-19); Potassium 4.5 mmol/L (3.5-5.1)
[2022-12-11 06:13] LABS: Aspartate Amino Transferase 29 U/L (0-32)
[2022-12-11 06:39] LABS: Glucose Point of Care 218 mg/dL (70-110)
[2022-12-11] MEDS: budesonide 0.5 mg/2 mL Neb INHALATION (07:59)
[2022-12-11] MEDS: guaiFENesin 600 mg Tablet 1200 MG PO (08:45)
[2022-12-11] MEDS: BuSPIRONE 10 mg Tablet 5 MG PO (08:46)
[2022-12-11] MEDS: montelukast sodium 10 mg Tablet PO (08:46)
[2022-12-11] MEDS: benzonatate 100 mg Capsule 200 MG PO (08:46)
[2022-12-11] MEDS: atorvastatin 40 mg Tablet 80 MG PO (08:46)
[2022-12-11] MEDS: pantoprazole DR 40 mg Tablet PO (08:46)
[2022-12-11] MEDS: insulin lispro 100 unit/1 mL SUBCUT (08:46)
[2022-12-11] MEDS: levothyroxine 25 mcg Tablet PO (08:47)
[2022-12-11] MEDS: lisinopril 5 mg Tablet PO (08:47)
[2022-12-11] MEDS: duloxetine 60 mg Capsule PO (08:50)
--- NOTE | 2022-12-11 09:10 | PC.SOCIAL ---
IMM update IMM updated with patient. Verbalized an understanding. Copy Pg 2 provided. Initialled, dated, timed, and placed in chart.
[2022-12-11 12:35] LABS: Glucose Point of Care 230 mg/dL (70-110)
--- NOTE | 2022-12-11 12:37 | PM.DCS ---
Discharge Providers Date of Admission: 12/08/22 04:06 Date of Discharge: December 11, 2022 Attending Provider at Admission: Denzel Chery MD Attending Provider at Discharge: Carlos Geiger Primary Care Provider: LEYLA Chappell Diagnoses at Discharge Discharge Diagnosis (1) Acute respiratory failure with hypoxia: Status: Acute (2) Community acquired pneumonia: Status: Acute (3) COPD (chronic obstructive pulmonary disease): Status: Acute (4) Smoker: Status: Acute (5) Morbid obesity with BMI of 40.0-44.9, adult: Status: Acute Reason for Visit Reason for Visit: difficulty breathing Hospital Course Hospital Course Pleasant 57-year-old lady with history of pulmonary problems following with pulmonology, recently diagnosed with restrictive lung disease, additionally GERD, obesity, tobacco use, was admitted for assessment management due to difficulty breathing, with finding of bilateral pneumonia, and imaging no PE, and imaging infiltrates possibly secondary to allergic pneumonitis, versus infectious etiology. Treated with meropenem, vancomycin, Solu-Medrol, breathing treatments, expectorants, pulmonary toilet. Initially required BiPAP support due to respiratory failure, gradually weaned off to nasal cannula oxygen and currently down to room air. Subjectively feeling better. Adventitious sounds on presentation have resolved. Air entry improved. MRSA PCR noted positive. Sputum culture not available. Urine bacterial antigens negative. Blood culture preliminary so far negative. As she is feeling better, feels comfortable returning home with outpatient follow-up, discharging with Levaquin, linezolid, prednisone taper. Asked to follow-up with pulmonology. Revisit smoking cessation. Visit regarding weight loss options. Physical Exam Const: COMMON NORMALS: patient oriented x3 and alert GENERAL APPEARANCE: cooperative ORIENTATION/CONSCIOUSNESS: Yes awake HENMT: COMMON NORMALS: oropharynx normal Neck/C-Spine: COMMON NORMALS: no JVD Resp: COMMON NORMALS: normal respiratory effort and clear to auscultation bilaterally AUSCULTATION: clear to auscultation bilaterally Cardio: COMMON NORMALS: no JVD, regular rhythm, S1 normal heart sound present, S2 normal heart sound present and No murmurs present (Cardio) RHYTHM: regular rhythm HEART SOUNDS: S1 normal heart sound present and S2 normal heart sound present GI: COMMON NORMALS: Normal to inspection, nondistended, normoactive bowel sounds present, Soft to palpation and non-tender PALPATION: Yes Soft to palpation Extremity: COMMON NORMALS: no joint enlargement and no pedal edema Neuro: COMMON NORMALS: patient oriented x3 and moves all extremities SENSORIUM/ORIENTATION: Yes alert Skin: COMMON NORMALS: no rashes or lesions noted GENERAL SKIN EXAM: no rashes or lesions noted Urinary Catheter Management: [place]: Cath Placed During This Visit: yes, but has since been removed by the nurse Reason for Continuing Indwelling Catheter: Acute Urinary Retention or Obstruction Urinary Catheter Date of Insertion: 12/08/22 Urinary Catheter Time of Insertion: 05:00 Date Urinary Catheter Removed: 12/10/22 Time Urinary Catheter Discontinued: 10:36 Discharge Data Studies Completed and Pending Completed Studies During Hospitalization Category Date Time Status CTA chest [CT angio chest PE protcl [id number]] Stat Cat Scan 12/08/22 01:01 Completed XR chest 1V portable [id number] Stat Exams 12/08/22 00:25 Completed Pending at discharge Category Date Time Status Blood Culture Stat Lab 12/08/22 01:39 Results Radiology Impressions Chest X-Ray 12/08/22 00:25 IMPRESSION: Mild peribronchial thickening and/or mild perihilar linear markings consistent with bronchitis and/or viral pneumonitis and/or reactive airway disease and/or atypical pulmonary interstitial edema. Chest CTA 12/08/22 01:01 IMPRESSION: 1. Moderate groundglass opacities and/or interstitial opacities consistent with moderate allergic pneumonitis, infectious pneumonitis or atypical pulmonary edema. 2. Shotty mediastinal and right hilar adenopathy which is probably reactive. 3. No pulmonary embolus or aortic dissection. Laboratory Results WBC 13.8 10^3/uL (4.0-10.0) H 12/11/22 05:17 RBC 4.62 10^6/uL (4.1-5.3) 12/11/22 05:17 Hgb 13.5 g/dL (11.5-15.3) 12/11/22 05:17 Hct 41.6 % (37.0-47.0) 12/11/22 05:17 MCV 90.0 fl (81-99) 12/11/22 05:17 MCH 29.2 pg (28.0-34.0) 12/11/22 05:17 MCHC 32.5 g/dL (30.0-36.0) 12/11/22 05:17 RDW 14.5 % (12.1-15.1) 12/11/22 05:17 Plt Count 214 10^3/cmm (130-400) 12/11/22 05:17 MPV 11.1 fL (7.4-10.4) H 12/11/22 05:17 Neut % (Auto) 69.0 % 12/11/22 05:17 Lymph % (Auto) 22.4 % 12/11/22 05:17 [place] % (Auto) 7.3 % 12/11/22 05:17 Eos % (Auto) 0.1 % 12/11/22 05:17 Baso % (Auto) 0.1 % 12/11/22 05:17 Neut # (Auto) 9.52 10^3/uL (1.8-7.7) H 12/11/22 05:17 Lymph # (Auto) 3.1 10^3/uL (0.8-4.8) 12/11/22 05:17 [place] # (Auto) 1.0 10^3/uL (0.2-0.9) H 12/11/22 05:17 Eos # (Auto) 0.0 10^3/uL (0.0-0.8) 12/11/22 05:17 Baso # (Auto) 0.0 10^3/uL (0.0-0.1) 12/11/22 05:17 Nucleated RBC % (auto) 0 % 12/11/22 05:17 Nucleated RBCs # 0.0 /100WBC 12/11/22 05:17 Specimen Type Arterial 12/08/22 00:49 Sample Site Brachial, left 12/08/22 00:49 ABG pH 7.33 (7.35-7.45) L 12/08/22 00:49 ABG pCO2 47.4 mmHg (35-45) H 12/08/22 00:49 ABG pO2 61.7 mmHg (80.0-100.0) L 12/08/22 00:49 ABG HCO3 24.7 mmol/L (22-26) 12/08/22 00:49 ABG Base Excess -1.8 mmol/L (-2.0-2.0) 12/08/22 00:49 Renaldo Test N/a 12/08/22 00:49 Hematocrit 41.4 % (37-47) 12/08/22 00:49 Hgb O2 Saturation 89.6 % (95-100) L 12/08/22 00:49 Carboxyhemoglobin 4.7 %THgb (0.4-20.1) 12/08/22 00:49 Methemoglobin < 0.0 % (0.4-1.5) L 12/08/22 00:49 Total Hemoglobin 13.5 g/dL (12-16) 12/08/22 00:49 O2 Delivery Device Nc 12/08/22 00:49 O2 Liters/Min 5.0 % 12/08/22 00:49 FiO2 40.0 % 12/08/22 00:49 Customer Account Representative ID Alewe 12/08/22 00:49 Sodium 133 mmol/L (136-145) L 12/11/22 05:17 Potassium 4.5 mmol/L (3.5-5.1) 12/11/22 05:17 Chloride 98 mmol/L (98-107) 12/11/22 05:17 Carbon Dioxide 23 mmol/L (22-29) 12/11/22 05:17 Anion Gap 16.5 (5-19) 12/11/22 05:17 BUN 25 mg/dL (6-20) H 12/11/22 05:17 Creatinine 0.5 mg/dL (0.5-0.9) 12/11/22 05:17 GFR Calculation 128.1 mL/min (90-130) 12/11/22 05:17 Glucose 194 mg/dL (65-115) H 12/11/22 05:17 POC Glucose 230 mg/dL (70-110) H 12/11/22 12:28 Calculated Osmolality 286 mOsm/kg (285-295) 12/11/22 05:17 Calcium 9.1 mg/dL (8.5-10.5) 12/11/22 05:17 Total Bilirubin 0.5 mg/dL (0.15-1.2) 12/11/22 05:17 AST 29 U/L (0-32) 12/11/22 05:17 ALT 26 U/L (0-33) 12/11/22 05:17 Alkaline Phosphatase 61 U/L (35-105) 12/11/22 05:17 C-Reactive Protein 3.0 mg/L (0.0-4.9) 12/08/22 00:30 NT-Pro-B Natriuret Pep 311 pg/mL (0-125) H 12/08/22 00:30 Total Protein 6.2 g/dL (6.6-8.7) L 12/11/22 05:17 Albumin 3.7 g/dL (3.5-5.2) 12/11/22 05:17 Globulin 2.5 g/dL (1.3-4.6) 12/11/22 05:17 Procalcitonin 0.06 ng/mL (0-0.5) 12/08/22 00:30 Nasal Influ A H1 2009 PCR Not detected (NOT DETECT) 12/08/22 19:00 Vancomycin Trough 10.7 ug/mL (10-15) 12/10/22 16:27 Adenovirus (PCR) Not detected (NOT DETECT) 12/08/22 19:00 C. pneumoniae DNA (PCR) Not detected (NOT DETECT) 12/08/22 19:00 Coronavirus 229E (PCR) Not detected (NOT DETECT) 12/08/22 19:00 Human Metapneumovir PCR Not detected (NOT DETECT) 12/08/22 19:00 Influenza A (H1) PCR Not detected (NOT DETECT) 12/08/22 19:00 Influenza A (H3) PCR Not detected (NOT DETECT) 12/08/22 19:00 Influenza Type A (PCR) Not detected (NOT DETECT) 12/08/22 19:00 Influenza Type B (PCR) Not detected (NOT DETECT) 12/08/22 19:00 M. pneumoniae (PCR) Not detected (NOT DETECT) 12/08/22 19:00 Parainfluenza 1 (PCR) Not detected (NOT DETECT) 12/08/22 19:00 Parainfluenza 2 (PCR) Not detected (NOT DETECT) 12/08/22 19:00 Parainfluenza 3 (PCR) Not detected (NOT DETECT) 12/08/22 19:00 Parainfluenza 4 (PCR) Not detected (NOT DETECT) 12/08/22 19:00 RSV Type A (PCR) Not detected (NOT DETECT) 12/08/22 19:00 RSV Type B (PCR) Not detected (NOT DETECT) 12/08/22 19:00 Entero/Rhino (PCR) Not detected (NOT DETECT) 12/08/22 19:00 SARS-CoV-2 (PCR) Not detected (NOT DETECT) 12/08/22 19:00 SARS-CoV-2 Ag (Rapid) negative (Negative) 12/08/22 01:45 Vitals Last Vital Signs Temp 97.7 F 12/11/22 08:00 Pulse 88 12/11/22 08:15 Resp 16 12/11/22 08:00 BP 155/79 12/11/22 08:00 Pulse Ox 98 12/11/22 11:48 O2 Del Method Room Air 12/11/22 07:55 O2 Flow Rate 1 12/11/22 08:30 FiO2 45 12/11/22 04:00 Discharge Plan Discharge Patient Disposition: Home Condition: Stable Prescriptions: New levofloxacin 750 mg tablet 750 mg PO DAILY 4 Days Qty: 4 0RF prednisone 20 mg tablet 20 mg PO DAILY Qty: 19 0RF Rx Instructions: 3 tab daily for 3 days, then 2 tab for 3 days, then 1 tab for 3 days, then 1/2 tab for 2 days. linezolid 600 mg tablet 600 mg PO BID 4 Days Qty: 8 0RF Continued (DME) diabetic shoes with moded inserts See Rx Instructions .Route .MEDSUPPLY Qty: 1 0RF Rx Instructions: As directed glipizide 5 mg tablet 5 mg PO DAILY cyanocobalamin (vitamin B-12) 100 mcg tablet 100 mcg PO DAILY buspirone 5 mg tablet 5 mg PO DAILY calcium carbonate [Calcium 500] 500 mg calcium (1,250 mg) tablet,chewable 500 mg PO DAILY levofloxacin 500 mg tablet 500 mg PO DAILY PRN (Reason: Chronic sinusitis) 21 Days Qty: 21 0RF fluticasone propionate 50 mcg/actuation spray,suspension 2 spray intranasal DAILY Rx Instructions: administer into each nostril hydrocortisone [Anti-Itch (HC)] 1 % ointment 1 applic topical BID PRN (Reason: skin irritation) budesonide-formoterol [Symbicort] 80-4.5 mcg/actuation HFA aerosol inhaler 2 inh inhalation BID Qty: 10.2 6RF (DME) Diabetic shoes with 3 inserts See Rx Instructions .Route .MEDSUPPLY Qty: 1 0RF Rx Instructions: As directed [facility] metformin 500 mg tablet 500 mg PO BID@0900,2100 atorvastatin 80 mg tablet 60 mg PO DAILY@0900 omeprazole 40 mg capsule,delayed release(DR/EC) 40 mg PO DAILY@0900 levothyroxine 25 mcg tablet 25 mcg PO DAILY@0900 albuterol sulfate 90 mcg/actuation HFA aerosol inhaler 2 puff inhalation Q4H PRN (Reason: Shortness Of Breath Or Wheezing) duloxetine 60 mg capsule,delayed release(DR/EC) 60 mg PO BID@0900,2100 ondansetron HCl 4 mg tablet 4 mg PO Q8H Qty: 20 0RF lisinopril 2.5 mg tablet 5 mg PO DAILY@0900 benzonatate 100 mg capsule 100 mg PO TID Qty: 30 0RF cyclobenzaprine 10 mg tablet 10 mg PO TID PRN (Reason: Pain) albuterol sulfate 2.5 mg /3 mL (0.083 %) solution for nebulization 2.5 mg inhalation Q4H PRN (Reason: Shortness Of Breath Or Wheezing) montelukast 10 mg tablet 10 mg PO DAILY Discontinued prednisone 20 mg tablet 20 mg PO DAILY 4 Days Qty: 4 0RF Discharge Orders: Discharge Order (Routine); Ordered 12/11/22 Ordered By: Carlos Geiger Referrals: Monika Maldonado FNP [Primary Care Provider] - 12/15/22 3:00 pm Datar,Axel Styles MD [Physician] - 1 week (Pneumonia, possible atypical pneumonia, possible allergic pneumonitis) Discharge Diet: Cardiac and Diabetic Activity Restrictions/Additional Instructions: Continue sent of spirometer, flutter valve. Complete prednisone taper, antibiotic course. Follow-up with your primary doctor, follow-up with automotive generator repairer for reassessment. Please stop smoking, continue smoking will lead to further deterioration of your lung function, risk of heart attack, stroke, a number of cancers and other complications. Never smoke anywhere near her oxygen due to risk of severe macias and fire hazard. Discuss with your primary doctor regarding also hoarseness, if not resolving, discuss referral to ENT. Seek medical attention in case of any worsened or new concerning symptoms. Discharge Attestations Time Spent in Discharge Care*: greater than 30 min Quality Metrics Clinical Quality Measures [ No reported AMI, CVA or VTE this stay] Coding Level of Care Code 18295 Total time (in minutes) for Discharge: 40 Diagnoses Acute respiratory failure with hypoxia J96.01 Community acquired pneumonia J18.9 COPD (chronic obstructive pulmonary disease) J44.9 Smoker F17.200 Morbid obesity with BMI of 40.0-44.9, adult E66.01; Z68.41
--- NOTE | 2022-12-11 14:41 | PC.NURSE ---
IV's removed intact. Patient tolerated well. Patient is A&Ox3. Respirations even and non-labored on room air. Reviewed patient discharge instructions with patient who verbally understands follow instructions on how to take medications and follow up appointments. Patient ambulated to private car.
== END 2022-12-11 14:47 | disposition home or self-care (01) | DRG 193 ==
LOC: ER 02:18 → ICU 02:45 → MEDSURG 12-09 15:46
PROVIDERS: Admitting Provider Internal Medicine; Emergency Provider Emergency Medicine; PCP Nurse Practitioner Family; Visit Provider Internal Medicine
DX: J18.9 Pneumonia, unspecified organism (principal); J96.01 Acute respiratory failure with hypoxia; J44.0 Chronic obstructive pulmonary disease with (acute) lower respiratory infection; Z68.41 Body mass index [BMI] 40.0-44.9, adult; F17.210 Nicotine dependence, cigarettes, uncomplicated; K21.9 Gastro-esophageal reflux disease without esophagitis; Z91.199 Patient's noncompliance with other medical treatment and regimen due to unspecified reason; F32.A Depression, unspecified; Z87.440 Personal history of urinary (tract) infections; E10.9 Type 1 diabetes mellitus without complications; E66.01 Morbid (severe) obesity due to excess calories; B95.62 Methicillin resistant Staphylococcus aureus infection as the cause of diseases classified elsewhere; Z79.51 Long term (current) use of inhaled steroids
CPT/HCPCS: 36415; 36416; 36600; 51702; 71045; 71275; 80053; 80202; 82805; 82962; 83880; 84145; 84484; 85025; 85378; 86140; 86403; 87040; 87081; 87426; 87486; 87581; 87633; 87641; 87880; 93005; 94640; 94660; 94664; 94760; 96365; 96367; 96372; 96374; 96375; 96376; 99285; J0456; J0696; J1100; J1815; J2060; J2185; J2405; J2920; J2930; J3370; J7050; J7613; J7626

== ENCOUNTER → 2023-01-01 10:40 | Outpatient (BNVA) | payer MEDICARE, MEDICAID, SELFPAY | PROVIDERS: PCP Nurse Practitioner Family; Visit Provider Internal Medicine Pulmonary Disease | DX: J44.9 Chronic obstructive pulmonary disease, unspecified (principal); R06.09 Other forms of dyspnea | CPT/HCPCS: 36415; 82785; 86003; 99214 ==

== ENCOUNTER → 2023-01-20 08:15 | Outpatient (BNVA) | payer MEDICARE, MEDICAID, SELFPAY | PROVIDERS: PCP Nurse Practitioner Family; Referring Provider Nurse Practitioner Family; Visit Provider Specialist | DX: M19.011 Primary osteoarthritis, right shoulder | CPT/HCPCS: 73030; 99204 ==

== ENCOUNTER → 2023-02-17 07:57 | Outpatient (BNVA) | payer MEDICARE, MEDICAID, SELFPAY | PROVIDERS: PCP Nurse Practitioner Family; Visit Provider Podiatrist Foot & Ankle Surgery | DX: M20.21 Hallux rigidus, right foot (principal); M20.22 Hallux rigidus, left foot; E11.42 Type 2 diabetes mellitus with diabetic polyneuropathy; M21.619 Bunion of unspecified foot; M21.41 Flat foot [pes planus] (acquired), right foot; M21.42 Flat foot [pes planus] (acquired), left foot; M20.41 Other hammer toe(s) (acquired), right foot; M20.42 Other hammer toe(s) (acquired), left foot; L60.3 Nail dystrophy; L84 Corns and callosities; Z79.84 Long term (current) use of oral hypoglycemic drugs | CPT/HCPCS: 11056; 11721 ==

== ENCOUNTER 2023-03-18 08:10 | Outpatient (CLI) | payer MEDICARE, MEDICAID, SELFPAY ==
--- NOTE | 2023-03-18 08:21 | MM_ITS ---
WS: [id number] Bilateral screening 3D tomosynthesis digital mammogram, 03/18/2023 Clinical Data: SCREENING Comparison: 03/09/2022, 12/06/2019, 09/10/2018, 09/28/2018, 09/13/2017, 08/21/2016, 08/13/2015, 08/07/2014, 07/08, 11/08/2012, 10/09/2011. Findings: The breast parenchymal pattern shows fat replacement. No spiculated masses or clustered calcification s are seen. There are no secondary signs of carcinoma. There is a biopsy clip in the anterior central right breast. There are lymph nodes in the left axilla. Impression: 1. Negative bilateral mammogram unchanged. 2. Recommend annual screening mammograms. MM/[place] [id number] BIRADS: 1-Negative FOLLOW UP: 1 Year Follow-up The CAD raspberry checker was used.
== END 2023-03-18 08:11 | disposition home or self-care (01) ==
LOC: RAD 08:10
PROVIDERS: PCP Nurse Practitioner Family; Visit Provider Nurse Practitioner Family
DX: Z12.31 Encounter for screening mammogram for malignant neoplasm of breast (principal)
CPT/HCPCS: 77063; 77067

== ENCOUNTER → 2023-04-21 08:22 | Outpatient (BNVA) | payer MEDICARE, MEDICAID, SELFPAY | PROVIDERS: PCP Nurse Practitioner Family; Visit Provider Podiatrist Foot & Ankle Surgery | DX: M20.21 Hallux rigidus, right foot (principal); M20.22 Hallux rigidus, left foot; E11.42 Type 2 diabetes mellitus with diabetic polyneuropathy; M21.619 Bunion of unspecified foot; M21.41 Flat foot [pes planus] (acquired), right foot; M21.42 Flat foot [pes planus] (acquired), left foot; M20.41 Other hammer toe(s) (acquired), right foot; M20.42 Other hammer toe(s) (acquired), left foot; L60.3 Nail dystrophy; L84 Corns and callosities; Z79.84 Long term (current) use of oral hypoglycemic drugs | CPT/HCPCS: 11056; 11721 ==

== ENCOUNTER → 2023-05-15 11:31 | Outpatient (BNVA) | payer MEDICARE, MEDICAID, SELFPAY | PROVIDERS: PCP Nurse Practitioner Family; Visit Provider Registered Nurse Neonatal Intensive Care | DX: R05.8 Other specified cough (principal); J40 Bronchitis, not specified as acute or chronic | CPT/HCPCS: 87400 ==

== ENCOUNTER → 2023-06-21 08:26 | Outpatient (BNVA) | payer MEDICARE, MEDICAID, SELFPAY | PROVIDERS: PCP Nurse Practitioner Family; Visit Provider Internal Medicine Pulmonary Disease | DX: J44.89 Other specified chronic obstructive pulmonary disease (principal); R06.09 Other forms of dyspnea; R05.3 Chronic cough; E66.01 Morbid (severe) obesity due to excess calories; Z68.41 Body mass index [BMI] 40.0-44.9, adult; F17.200 Nicotine dependence, unspecified, uncomplicated; K21.9 Gastro-esophageal reflux disease without esophagitis; G47.33 Obstructive sleep apnea (adult) (pediatric) | CPT/HCPCS: 99214 ==

== ENCOUNTER 2023-07-21 13:00 | Outpatient (CLI) | payer MEDICARE, MEDICAID, SELFPAY | END 2023-07-21 13:01 | disposition home or self-care (01) | LOC: SLEEP 07-22 08:52 | PROVIDERS: PCP Nurse Practitioner Family; Visit Provider Internal Medicine Pulmonary Disease | DX: E11.42 Type 2 diabetes mellitus with diabetic polyneuropathy (principal); L60.3 Nail dystrophy; L84 Corns and callosities; M20.21 Hallux rigidus, right foot; G47.33 Obstructive sleep apnea (adult) (pediatric); M20.22 Hallux rigidus, left foot; Z79.84 Long term (current) use of oral hypoglycemic drugs | CPT/HCPCS: 11056; 11721; 94762 ==

== ENCOUNTER → 2023-10-19 07:45 | Outpatient (BNVA) | payer MEDICARE, SELFPAY | PROVIDERS: PCP Nurse Practitioner Family; Visit Provider Podiatrist Foot & Ankle Surgery | DX: L84 Corns and callosities (principal); E11.42 Type 2 diabetes mellitus with diabetic polyneuropathy; Z79.84 Long term (current) use of oral hypoglycemic drugs; E66.01 Morbid (severe) obesity due to excess calories; F17.200 Nicotine dependence, unspecified, uncomplicated; G47.33 Obstructive sleep apnea (adult) (pediatric); J44.89 Other specified chronic obstructive pulmonary disease; K21.9 Gastro-esophageal reflux disease without esophagitis; R05.3 Chronic cough; R06.09 Other forms of dyspnea; Z68.41 Body mass index [BMI] 40.0-44.9, adult | CPT/HCPCS: 11056; 99213; 99214 ==

== ENCOUNTER 2023-12-10 09:01 | Outpatient (CLI) | payer MEDICARE, SELFPAY ==
--- NOTE | 2023-12-10 09:00 | CT_ITS ---
WS: [id number] LDCT LUNG CANCER SCREENING TECHNIQUE: Noncontrast CT of the chest with coronal and sagittal reformatted images. CLINICAL INFORMATION: Cancer Screen COMPARISON: None. DLP: 280.10 mGy.cm DIvol: Mean CTDIvol: 7.10 (mGy) All CT scans at [facility] use at least one of these dose optimization techniques: automat ed exposure control; mA and/or kV adjustment per patient size (includes targeted exams where dose is matched to clinical indication); or iterative reconstruction. FINDINGS: Lungs are well aerated. No focal pneumonia. No suspicious pulmonary parenchymal opacities. A few calcified granulomas. Normal caliber thoracic aorta. Aortic calcification. No mediastinal or hilar lymphadenopathy. No axil jason lymphadenopathy. Aortic calcification. Coronary calcification. Adrenal glands are normal. Hepatomegaly. Cholecystectomy. Normal GE junction. Mild thoracic curve. Mi ld thoracic kyphosis and hypertrophic changes thoracic spine. CT/CT lung screening [id number] IMPRESSION: LUNG-RADS: 1-Negative FOLLOW UP: 12 Month: Continue annual screening with LDCT
== END 2023-12-10 09:02 | disposition home or self-care (01) ==
PROVIDERS: PCP Nurse Practitioner Family; Visit Provider Internal Medicine Pulmonary Disease
DX: Z12.2 Encounter for screening for malignant neoplasm of respiratory organs (principal); F17.210 Nicotine dependence, cigarettes, uncomplicated; J84.10 Pulmonary fibrosis, unspecified; I70.0 Atherosclerosis of aorta; I25.84 Coronary atherosclerosis due to calcified coronary lesion; R16.0 Hepatomegaly, not elsewhere classified; Z90.49 Acquired absence of other specified parts of digestive tract
CPT/HCPCS: 71271

== ENCOUNTER → 2024-01-26 07:45 | Outpatient (BNVA) | payer MEDICARE, SELFPAY | PROVIDERS: PCP Nurse Practitioner Family; Visit Provider Podiatrist Foot & Ankle Surgery | DX: L84 Corns and callosities (principal); E11.42 Type 2 diabetes mellitus with diabetic polyneuropathy; L60.3 Nail dystrophy; Z79.84 Long term (current) use of oral hypoglycemic drugs | CPT/HCPCS: 11056; 11721 ==

== ENCOUNTER 2024-01-30 03:49 | Emergency (ER) | payer MEDICARE, SELFPAY ==
[2024-01-30 03:57] VITALS: BP 157/86; PULSE 82; RESP 18; TEMP 36.6; O2SAT 96; BMI 31.3
--- NOTE | 2024-01-30 03:59 | ED_ITS ---
HPI - Extremity Injury (Upper) General: Chief Complaint: Extremity Injury, Upper Stated Complaint: fall right arm/ wrist injury Time Seen by Provider: 01/30/24 03:51 Source: patient Mode of arrival: ambulatory Limitations: no limitations History of Present Illness: 58-year-old female states that she got m elanite go to the bathroom slipped on a blanket and fell on her right arm states she has right wrist pain she rates that pain a 6 out of 10 pain is worse with palpation she denies any other injuries denies hitting her head. Associated symptoms: Denies neck pain Related Data Home Medications Medication Instructions Recorded Confirmed albuterol sulfate 90 mcg/actuation 2 puff inhalation Q4H PRN 05/01/20 01/26/24 aerosol inhaler Shortness Of Breath Or Wheezing atorvastatin 80 mg tablet 60 mg PO DAILY@0900 05/01/20 01/26/24 duloxetine 60 mg capsule,delayed 60 mg PO BID@0900,2100 05/01/20 01/26/24 release levothyroxine 25 mcg tablet 25 mcg PO DAILY@0900 05/01/20 01/26/24 metformin 500 mg tablet 500 mg PO BID@0900,2100 05/01/20 01/26/24 omeprazole 40 mg capsule,delayed 40 mg PO DAILY@0900 05/01/20 01/26/24 release buspirone 5 mg tablet 5 mg PO DAILY 02/24/22 01/26/24 calcium carbonate (Calcium 500) 500 mg PO DAILY 02/24/22 01/26/24 cyanocobalamin (vitamin B-12) 100 100 mcg PO DAILY 02/24/22 01/26/24 mcg tablet glipizide 5 mg tablet 5 mg PO DAILY 08/06/22 01/26/24 hydrocortisone 1 % topical 1 applic topical BID PRN skin 10/19/22 01/26/24 ointment (Anti-Itch irritation (hydrocortisone)) albuterol sulfate 2.5 mg/3 mL 2.5 mg inhalation Q4H PRN 12/08/22 01/26/24 (0.083 %) solution for nebulization Shortness Of Breath Or Wheezing cyclobenzaprine 10 mg tablet 10 mg PO TID PRN Pain 12/08/22 01/26/24 montelukast 10 mg tablet 10 mg PO DAILY 12/08/22 01/26/24 cholecalciferol (vitamin D3) 125 125 mcg PO DAILY 06/21/23 01/26/24 mcg (5,000 unit) capsule semaglutide 0.25 mg or 0.5 mg (2 mg SUBCUT 07/21/23 01/26/24 mg/3 mL) subcutaneous pen injector (Ozempic) ramelteon 8 mg tablet 8 mg PO .HS 10/19/23 01/26/24 Previous Rx's Medication Instructions Recorded diabetic shoes with moded inserts #1 ea 12/13/19 fluticasone propionate 50 2 spray intranasal DAILY #16 grams 01/15/23 mcg/actuation nasal spray,suspension budesonide 160 mcg-glycopyr 9 2 inh inhalation BID #10.7 grams 04/02/23 mcg-formot 4.8 mcg/actuation HFA inhaler (Breztri Aerosphere) losartan 25 mg tablet 25 mg PO DAILY #90 tabs 04/02/23 Diabetic shoes with 3 inserts #1 ea 07/21/23 Acapella #1 ea 10/19/23 hydrocodone 5 mg-acetaminophen 325 1 tab PO Q6H PRN pain #14 tabs 01/30/24 mg tablet Allergies Allergy/AdvReac Type Severity Reaction Status Date / Time amoxicillin Allergy ALGY-Rash Verified 01/26/24 07:44 aspirin Allergy difficulty Verified 01/26/24 07:44 breathing Penicillins Allergy hives Verified 01/26/24 07:44 Sulfa (Sulfonamide Allergy hives Verified 01/26/24 07:44 Antibiotics) Review of Systems Const: Denies: fever(s), chills, body aches or change in appetite ENMT: Denies: throat pain or dental pain Card: Denies: chest pain Resp: Denies: dyspnea GI: Denies: abdominal pain, nausea, vomiting or diarrhea Musc: Reports: extremity pain; Denies: neck pain or back pain Skin/Breast: Denies: rash Neuro: Denies: headache(s) PFSH ED PFSH: Medical History Recurrent UTI Renal stones Mixed stress and urge urinary incontinence Depression Type 1 diabetes Hyperthyroidism High cholesterol Surgical History Hx of thumb surgery History of cholecystectomy History of hysterectomy History of carpal tunnel release of both wrists History of laparoscopy Family History Brother Diabetes Father , age 73 Diabetes Stroke Sister Diabetes Grandfather Prostate cancer CAD (coronary artery disease) Mother Hypertension Hyperlipidemia Social History Smoking and tobacco/nicotine status: current every day tobacco/nicotine user (less than 1 ppd) cigarettes Packs smoked per day: 1.5 Years cigarettes smoked: 40 Alcohol intake: never Substance/Drug Use: never Marital status: Current occupational status: disabled Physical Exam Const: COMMON NORMALS: no acute distress, patient oriented x3 and healthy appearing HENMT: COMMON NORMALS: normocephalic and atraumatic HEAD & SCALP: normocephalic and atraumatic Neck/C-Spine: COMMON NORMALS: full ROM and supple Chest: COMMONS NORMALS: normal inspection of the chest Resp: COMMON NORMALS: normal respiratory effort Cardio: COMMON NORMALS: regular rate, regular rhythm and No murmurs present (Cardio) RATE: regular rate RHYTHM: regular rhythm Extremity: NARRATIVE EXTREMITY EXAM: Tenderness to right wrist distal pulse sensation intact Neuro: COMMON NORMALS: patient oriented x3, moves all extremities and no focal motor deficits Psych: COMMON NORMALS: mental status grossly normal, Normal thought process present and cooperative THOUGHT PROCESS: Normal thought process present Skin: COMMON NORMALS: no rashes or lesions noted and no wounds GENERAL SKIN EXAM: no rashes or lesions noted Course Vital Signs: Vital signs: Vital Signs Temperature 98 F 01/30/24 03:57 Pulse Rate 78 01/30/24 04:14 Respiratory Rate 18 01/30/24 03:57 Blood Pressure 170/85 01/30/24 04:14 Pulse Oximetry 92 01/30/24 04:14 Oxygen Delivery Me thod Room Air 01/30/24 04:14 MDM - Extremity Injury (Upper) Medical Decision Making Patient presents with a radius fracture from a fall will place in a splint we will get follow-up orthopedics no other injuries noted Medical Records I reviewed the patient's medical records. XR interpretation done by ED provider, pending radiology final review ED provider radiology interpretation(s): X-ray right wrist distal radius fracture Discharge Plan Discharge Patient Disposition: Home Clinical Impression: Fracture of wrist Qualifiers: Encounter type: initial encounter Fracture type: closed Laterality: right Qualified Code(s): S62.101A - Fracture of unspecified carpal bone, right wrist, initial encounter for closed fracture Condition: Stable Prescriptions: New hydrocodone-acetaminophen 5-325 mg tablet 1 tab PO Q6H PRN (Reason: pain) Qty: 14 0RF No Action (DME) diabetic shoes with moded inserts See Rx Instructions .Route .MEDSUPPLY Qty: 1 0RF Rx Instructions: As directed glipizide 5 mg tablet 5 mg PO DAILY cyanocobalamin (vitamin B-12) 100 mcg tablet 100 mcg PO DAILY buspirone 5 mg tablet 5 mg PO DAILY calcium carbonate [Calcium 500] 500 mg calcium (1,250 mg) tablet,chewable 500 mg PO DAILY hydrocortisone [Anti-Itch (HC)] 1 % ointment 1 applic topical BID PRN (Reason: skin irritation) ramelteon 8 mg tablet 8 mg PO .HS (DME) Acapella See Rx Instructions .Route .MEDSUPPLY Qty: 1 0RF Rx Instructions: As directed cholecalciferol (vitamin D3) 125 mcg (5,000 unit) capsule 125 mcg PO DAILY Ozempic 0.25 mg or 0.5 mg (2 mg/3 mL) pen injector SUBCUT (DME) Diabetic shoes with 3 inserts See Rx Instructions .Route .MEDSUPPLY Qty: 1 0RF Rx Instructions: As directed by HOME fluticasone propionate 50 mcg/actuation spray,suspension 2 spray intranasal DAILY Qty: 16 0RF Rx Instructions: administer into each nostril Breztri Aerosphere 160-9-4.8 mcg/actuation HFA aerosol inhaler 2 inh inhalation BID Qty: 10.7 6RF losartan 25 mg tablet 25 mg PO DAILY Qty: 90 2RF metformin 500 mg tablet 500 mg PO BID@0900,2100 atorvastatin 80 mg tablet 60 mg PO DAILY@0900 omeprazole 40 mg capsule,delayed release(DR/EC) 40 mg PO DAILY@0900 levothyroxine 25 mcg tablet 25 mcg PO DAILY@0900 albuterol sulfate 90 mcg/actuation HFA aerosol inhaler 2 puff inhalation Q4H PRN (Reason: Shortness Of Breath Or Wheezing) duloxetine 60 mg capsule,delayed release(DR/EC) 60 mg PO BID@0900,2100 cyclobenzaprine 10 mg tablet 10 mg PO TID PRN (Reason: Pain) albuterol sulfate 2.5 mg /3 mL (0.083 %) solution for nebulization 2.5 mg inhalation Q4H PRN (Reason: Shortness Of Breath Or Wheezing) montelukast 10 mg tablet 10 mg PO DAILY Discharge Orders: Discharge ED (Routine); Ordered 01/30/24 Ordered By: Nora Powell Referrals: Monika Maldonado FNP [Primary Care Provider] - Tee Obregon DO [Physician] - 1-3 days Discharge Diet: Advance as tolerated Discharge Activity: Resume usual activity Patient Instructions: Wrist Fracture in Adults (ED) Coding Level of Care Code ED Secretarial Stenographer for Lamberto Rivera
[2024-01-30] MEDS: naproxen 500 mg Tablet PO (04:13)
[2024-01-30 04:14] VITALS: BP 170/85; PULSE 78; O2SAT 92
--- NOTE | 2024-01-30 04:16 | XRR_ITS ---
PROCEDURE INFORMATION: Exam: XR Right Wrist Exam date and time: 01/30/2024 4:18 AM Age: 58 years old Clinical indication: Injury or trauma; Fall; Blunt trauma (contusions or hematomas); Right; Prior surgery; Surgery date: 6+ months; Surgery type: Carpal tunnel release; Patient HX: Patient fell at home landing on RT arm. C/O pain to radial side of wrist. TECHNIQUE: Imaging protocol: Radiologic exam of the right wrist. Views: 3 or more views. COMPARISON: No relevant prior studies available. FINDINGS: Bones/joints: Comminuted nondisplaced fracture of the distal radius. No other osseous or joint abnormality. Soft tissues: Normal. Other findings: . XR/XR wrist RT min 3V* [id number] IMPRESSION: Fracture of the distal radius.
[2024-01-30 04:55] VITALS: BP 181/90; PULSE 76; O2SAT 94
--- NOTE | 2024-01-30 04:55 | PC.NURSE ---
Dr. Powell aware of discharge vitals.
--- NOTE | 2024-01-31 08:47 | DCPLANNER ---
messaged ortho for er f/u
== END 2024-01-30 04:55 | disposition home or self-care (01) ==
PROVIDERS: Emergency Provider Emergency Medicine; PCP Nurse Practitioner Family
DX: S52.501A Unspecified fracture of the lower end of right radius, initial encounter for closed fracture (principal); Z79.84 Long term (current) use of oral hypoglycemic drugs; Z79.85 Long-term (current) use of injectable non-insulin antidiabetic drugs; Z79.890 Hormone replacement therapy; F17.210 Nicotine dependence, cigarettes, uncomplicated; E10.9 Type 1 diabetes mellitus without complications; W01.0XXA Fall on same level from slipping, tripping and stumbling without subsequent striking against object, initial encounter
CPT/HCPCS: 29125; 73110; 99283

== ENCOUNTER → 2024-02-04 07:49 | Outpatient (BNVA) | payer MEDICARE, SELFPAY | PROVIDERS: PCP Nurse Practitioner Family; Visit Provider Student in an Organized Health Care Education/Training Program | DX: S62.101A Fracture of unspecified carpal bone, right wrist, initial encounter for closed fracture (principal); S52.501A Unspecified fracture of the lower end of right radius, initial encounter for closed fracture; W01.0XXA Fall on same level from slipping, tripping and stumbling without subsequent striking against object, initial encounter | CPT/HCPCS: 73110 ==

== ENCOUNTER 2024-02-04 09:38 | Outpatient (CLI) | payer MEDICARE, SELFPAY | END 2024-02-04 09:39 | disposition home or self-care (01) | LOC: SPT 09:39 | PROVIDERS: PCP Nurse Practitioner Family; Visit Provider Student in an Organized Health Care Education/Training Program | DX: Z46.89 Encounter for fitting and adjustment of other specified devices (principal); S62.101S Fracture of unspecified carpal bone, right wrist, sequela; X58.XXXS Exposure to other specified factors, sequela | CPT/HCPCS: 99204; L3984 ==

== ENCOUNTER → 2024-02-15 08:57 | Outpatient (BNVA) | payer MEDICARE, SELFPAY | PROVIDERS: PCP Nurse Practitioner Family; Visit Provider Physician Assistant | DX: S52.501A Unspecified fracture of the lower end of right radius, initial encounter for closed fracture (principal); W01.0XXA Fall on same level from slipping, tripping and stumbling without subsequent striking against object, initial encounter | CPT/HCPCS: 73110; 99214 ==

== ENCOUNTER 2024-02-21 13:05 | Day surgery (SDC) | payer MEDICARE, SELFPAY ==
[2024-02-21] VITALS (10 sets, daily range): BP systolic 129–174; BP diastolic 73–98; PULSE 72–102; RESP 14–18; TEMP 36.2–36.6; O2SAT 92–98; BMI 39.7
--- NOTE | 2024-02-21 | XR_ITS ---
WS: [id number] Right wrist, C-arm fluoroscopy views, 02/21/2024 Clinical Data: OR PICS Comparison: Right wrist, 02/04/2024 Findings: Dr. Obregon placed a distal volar plate with screws to reduce the distal right radial fracture. XR/XR wrist RT 2V [id number] Impression: Internal fixation of distal right radial fracture.
[2024-02-21] MEDS: scopolamine 1.5 Patch 1 PATCH TRANSDERMA (14:01)
[2024-02-21] MEDS: sodium chloride 0.9% 1,000 ML 30 ML IV (14:01)
[2024-02-21] MEDS: acetaminophen 1,000 MG/100 ML PIGGYBACK 400 MG IV (14:02)
[2024-02-21 14:08] LABS: Glucose Point of Care 93 mg/dL (70-110)
--- NOTE | 2024-02-21 14:29 | W.PM.OPSUD ---
Surgery/Procedure H&P Update DATE OF PROCEDURE: February 21, 2024 DATE H&P PERFORMED: 02/15/24 H&P UPDATE INFORMATION: I have reviewed H&P completed within last 30 days, I have examined patient prior to procedure and No changes to prior documentation PREOP DIAGNOSIS: Right displaced/angulated distal radius fracture PRIMARY INDICATION FOR PROCEDURE: Right displaced/angulated distal radius fracture PLANNED PROCEDURE: Operation Date: 02/21/24 15:40 Proposed Procedures p ORIF Wrist ORIF Distal Radius(Right) - Tee Obregon DO
--- NOTE | 2024-02-21 14:48 | ANES.PREANE2 ---
Pre-Anesthetic Assessment Height/Weight: Height 5 ft 7 in Weight 254 lb Temp Pulse Resp BP Pulse Ox O2 Del Method 97.3 F L 72 18 174/98 97 Room Air 02/21/24 13:35 02/21/24 13:35 02/21/24 13:35 02/21/24 13:35 02/21/24 13:35 02/21/24 13:35 Preop Diagnosis: Right displaced/angulated distal radius fracture Operation Date: 02/21/24 15:40 Proposed Procedures p ORIF Wrist ORIF Distal Radius(Right) - Tee Sabas, DO Was Beta Riaz taken within 24 hours: N/A Was Clonidine taken within 24 hours: N/A Last intake: Intake Last Liquid Date 02/20/24 Last Liquid Time 19:00 Last Solid Date 02/20/24 Last Solid Time 19:00 Social No alcohol and No tobacco Exam alert, oriented x 3, clear to auscultation bilaterally and regular rate & rhythm Airway Submandibular: within normal limits Cervical ROM: within normal limits Mallampati: Class II Dentition: full and other (Few missing teeth) Anesthetic Plan ASA status: 3 Anesthesia: General and Regional (specify below) Other: No prior issues with anesthesia NPO since yesterday History of ADRIANA on CPAP COPD/asthma on chronic inhalers GERD, diet controlled Hypertension on losartan Type 2 diabetes on semaglutide, last taken 02/13/2024. Blood sugar 93 today EKG showing sinus tachycardia with old septal MS Plan for preop nerve block with general anesthesia Medications/Allergies Home Medications Medication Instructions Recorded Confirmed Last Taken Type diabetic shoes with moded inserts #1 ea 12/13/19 02/15/24 Unknown Rx albuterol sulfate 90 mcg/actuation 2 puff inhalation Q4H PRN 05/01/20 02/17/24 Unknown History aerosol inhaler Shortness Of Breath Or Wheezing atorvastatin 80 mg tablet 60 mg PO DAILY@0900 05/01/20 02/17/24 02/20/24 History duloxetine 60 mg capsule,delayed 60 mg PO BID@0900,2100 05/01/20 02/17/24 02/20/24 History release buspirone 5 mg tablet 5 mg PO DAILY 02/24/22 02/17/24 02/20/24 History calcium carbonate (Calcium 500) 500 mg PO DAILY 02/24/22 02/17/24 02/17/24 History cyanocobalamin (vitamin B-12) 100 100 mcg PO DAILY 02/24/22 02/17/24 02/17/24 History mcg tablet glipizide 5 mg tablet 5 mg PO DAILY 08/06/22 02/17/24 02/20/24 History albuterol sulfate 2.5 mg/3 mL 2.5 mg inhalation Q4H PRN 12/08/22 02/17/24 Unknown History (0.083 %) solution for nebulization Shortness Of Breath Or Wheezing fluticasone propionate 50 2 spray intranasal DAILY #16 grams 01/15/23 02/17/24 Unknown Rx mcg/actuation nasal spray,suspension budesonide 160 mcg-glycopyr 9 2 inh inhalation BID #10.7 grams 04/02/23 02/17/24 Unknown Rx mcg-formot 4.8 mcg/actuation HFA inhaler (Breztri Aerosphere) losartan 25 mg tablet 25 mg PO DAILY #90 tabs 04/02/23 02/17/24 02/20/24 Rx cholecalciferol (vitamin D3) 125 125 mcg PO DAILY 06/21/23 02/17/24 02/20/24 History mcg (5,000 unit) capsule Diabetic shoes with 3 inserts #1 ea 07/21/23 02/15/24 Unknown Rx semaglutide 0.25 mg or 0.5 mg (2 0.5 mg SUBCUT Q7D 07/21/23 02/21/24 02/13/24 History mg/3 mL) subcutaneous pen injector (Ozempic) Acapella #1 ea 10/19/23 02/15/24 Unknown Rx right fast form splint #1 ea 02/04/24 02/15/24 Unknown Rx Allergies Allergy/AdvReac Type Severity Reaction Status Date / Time amoxicillin Allergy ALGY-Rash Verified 02/17/24 08:48 aspirin Allergy difficulty Verified 02/17/24 08:48 breathing Penicillins Allergy hives Verified 02/17/24 08:48 Sulfa (Sulfonamide Allergy hives Verified 02/17/24 08:48 Antibiotics) Current Medications Generic Name Dose Route Start Last Admin Trade Name Freq PRN Reason Stop Dose Admin Sodium Chloride 1,000 mls @ 30 mls/hr 02/21/24 13:30 02/21/24 14:01 Sodium Chloride 0.9% IV 02/22/24 13:29 30 mls/hr .Q24H TAMERA Administration PFSH Anesthesia Medical History Recurrent UTI Renal stones Mixed stress and urge urinary incontinence Depression Type 1 diabetes Hyperthyroidism High cholesterol Surgical History Hx of thumb surgery History of cholecystectomy History of hysterectomy History of carpal tunnel release of both wrists History of laparoscopy Family History Brother Diabetes Father , age 73 Diabetes Stroke Sister Diabetes Grandfather Prostate cancer CAD (coronary artery disease) Mother Hypertension Hyperlipidemia Social History Smoking and tobacco/nicotine status: never used tobacco/nicotine Alcohol intake: never Substance/Drug Use: never Marital status: Current occupational status: disabled Data Anesthesia Cardiac Studies: Echocardiogram 11/05/22
--- NOTE | 2024-02-21 15:25 | ANES.PROC ---
Anesthesia Procedures Procedure/Date: 02/21/24 Nerve Block ^: Nerve Block 1: Main Anesthesia: other (100mcg fentanyl and 2mg versed) Time Out Performed: Yes Consent: requested by attending/covering physician and from patient Nerve block location: supraclavicular Anesthesia monitors applied: pulse oximetry, EKG, BP cuff and oxygen Nerve block position: supine Anesthetic Used: ropivicaine 0.5% Amount of anesthesia used (mL): 30 Ultrasound used to: recognize landmarks Nerve Stimulator Used?: Yes Interscalene/Femoral BLK: other needle (pjunk needle) Injection: neg aspiration of heme Patient Tolerated Procedure: well Complications: none
--- NOTE | 2024-02-21 15:32 | SUR.PREOP ---
right super clavicular nerve block with 26ml 0.5% ropivicaine, right upper arm tourniquet block with 4ml of 0.5% ropivicaine. Patient monitored O2, EKG, and NC 2L. Patient tolerated well.
[2024-02-21] MEDS: clindamycin 900 MG/50 ML PREMIX 100 MG IV (15:42)
--- NOTE | 2024-02-21 17:10 | P.BOP_ITS ---
Date of Procedure: 02/21/2024 Surgeon: Tee Obregon DO School Supervisor(s): None Procedure(s) performed: Right distal radius open reduction internal fixation three-part intra-articular Findings of the procedure(s): Patient found to have three-part intra-articular right distal radius fracture underwent procedure as planned without issues or complications placed in a volar splint postoperatively Estimated blood loss: 10 mL Specimen(s) removed: None Post-operative diagnosis: Right distal radius fracture three-part intra- articular
--- NOTE | 2024-02-21 17:10 | P.OP_ITS ---
Operative Report Date of procedure: February 21, 2024 Surgeon: Tee Obregon DO Procedure: Preop Diagnosis ?Right?distal?radius fracture and ulnar styloid fracture? Procedure: Post-op diagnosis: Same, 3 part intra-articular Procedure done: Right?distal?radius open reduction internal fixation, 3-part intra-articular Implants: ?Arthrex Right 3-hole narrow volar locking plate Combination of locking and nonlocking screws 2.7 mm?distal Combination of locking and nonlocking screws 3.5 mm proximal Surgeon: Tee Obregon DO Anesthesia: General and nerve Block (Regional) Estimated blood loss: 10 mL Tourniquet time: 28 minutes IV fluids: 800 mL Complications: None Findings: See operative report narrative Condition: stable Disposition: same day Brief History: Patient is a 58-year-old female who presented to my office for a [id number] Right?distal?radius fracture.? Patient has significant comminution and shortening as well as dorsal angulation. Patient attempted initially conservative treatment however persistent dorsal angulation occurred within the first couple weeks and given that patient active and at this point time through shared decision making patient like to proceed with a Right?distal?radius ORIF.? We had a detailed discussion in the office about nonoperative and operative intervention.? At this point time I feel through shared decision? best option would be open reduction internal fixation she is active and already has a considerable deformity?? as result through shared decision making patient would like to proceed with ORIF Right?distal?radius fracture.? Detail the risk benefits complication alternatives to treatment option.? Understanding risk for surgery patient elects to proceed with surgical intervention.? All questions been answered at this time. Procedure: Patient seen and evaluated in the preoperative holding area.? Consent reviewed and signed with patient.? Correct extremities were marked and consent was reviewed and signed.? Patient was seen and evaluated by anesthesia department.? Underwent regional anesthesia. Once cleared for surgery pt was taken back to the operative suite.? Patient was then transported into the operative suite and kept on the OR gurney, all bony prominences well-padded patient was appropriate secured to bed in supine position.? An armboard was applied to the Right upper extremity.? The Right upper extremity had a nonsterile tourniquet applied.? Patient subsequently was then prepped and draped in standard orthopedic fashion she underwent anesthesia per the anesthesia department.? A final timeout was performed.? Patient received appropriate preoperative antibiotics. Esmarch was used exsanguinate the Right upper extremity and tourniquet was insufflated to 250 mmHg. A standard modified FCR volar approach was performed to the Right?distal?radius.? Sharp scalpel incision through skin and subcutaneous tissue.? I then switched to Littler dissection scissors identify the FCR tendon releases out of the sheath both proximally and?distally mobilized the tendon ulnarly and then subsequently incised the floor of the FCR tendon sheath with care to just incise the floor.? I then bluntly sweep the FPL tendon muscle belly ulnarly and placed blunt self-retaining retractor.? At this point time I direct visualization of the pronator quadratus which was incised in standard L fashion off the?radial and?distal?border in the?distal?radius and fracture site was scraped clean of interposed muscle belly.? I then identified the 3 part intra- articular?distal?radius fracture.? This was subsequently opened above and freed of interposing muscle belly as well as periosteum and fracture hematoma.? I did have to utilize my [place] which was placed through the fracture pattern and disengage the fracture and performed manual manipulation and anatomic reduction of the?distal?radius fracture.? ?Once satisfied with reduction and had appropriate anatomic reduction of the volar cortex.? This was confirmed with mini C arm in multiple orthogonal imaging.? At this point time? I selected a Arthrex anatomic?distal?radius plate utilizing a narrow 3-hole plate which would have appropriate spread?distally.? This was then placed up to the?distal?radius while maintaining my reduction, pins were placed?distally and proximally to confirm appropriate placement of the plate along the?distal?radius.? Minor adjustments were made and once I was satisfied I then subsequently drilled a bicortical 3.5 screw proximally in the oblong hole to allow for appropriate sliding of the?distal?radius plate appropriately to perfect position on the?distal?radius.? This had excellent fixation and purchase and brought the plate to bone.? While maintaining my reduction I then confirmed in multiple orthogonal imaging that my plate was in appropriate position.? Once satisfied with my position I then subsequently placed the aggie targeting guide on the?distal?locking screws with Arthrex.? The locking guide was then subsequently loaded and I subsequently drilled and placed a fully threaded cortical screw to compress the plate to bone for the?distal?fracture fragment.? This was performed with plan to then remove this and placed a shorter locking screw had bicortical fixation with excellent purchase and appropriate reduction of my volar tilt and bringing plate to bone of the?distal?fragment and plate.? Once I was satisfied with my plate position as well as reduction of the?distal?radius which was confirmed on AP oblique and lateral imaging I then subsequently drilled measured and placed 3 locking screws around this cortical screw.? Then I subsequently removed the cortical screw and placed a shorter locking screw that did not penetrate the dorsal cortex.?? This completed my?distal?fixation.? I did utilize mini C arm to confirm appropriate placement of the screws these were all within the?distal?radius and no joint involvement within the?radiocarpal joint or the DRUJ.? These had appropriate subchondral support and maintenance of reduction and fixation of the?distal?radius fracture .? ?I then turned my attention proximally and then I screwed in the locking guides for my final to screws proximally these were then subsequently drilled measured and appropriate length locking screws were then placed proximally with excellent fixation and locking technology into the plate.? This completed my construct.? The peek guide was subsequently removed and final imaging of the Right?dista l?radius open reduction internal fixation was taken of AP lateral as well and is orthogonal imaging.? I then took a inclination view which showed my?radial styloid screw was out of the penetration of the joint.? All my?distal?screws were appropriate length did not penetrate dorsal cortex and did not penetrate the joint.? This completed my fixation.? Smooth wrist range of motion was then noted with no evidence of clicking. Wrist was then taken through pronation supination and stressed the DRUJ which was found to be stable.? The wound was then thoroughly irrigated.? Tourniquet was then subsequently deflated.? Hemostasis satisfactory with bipolar electrocautery.? I then subsequently placed interrupted 3-0 Vicryl sutures for subcutaneous tissue and then subsequently placed a nylon the skin for closure.? Incision was then dressed with Xeroform 4 x 4's Kerlix cast padding and a volar Ortho-Glass splint was then applied with Bishop wrap and placed in a sling.? Disposition: Patient taken to PACU in stable condition recovering well receive appropriate discharge instructions as well as pain medication postoperatively.? Maintain splint until follow-up.? Nonweightbearing to operative upper extremity We will follow-up with orthopedics in the office in 2 weeks.? If any questions or concerns feel free to contact the office.
[2024-02-21] MEDS: ondansetron 2 mg/ML SDV 2 mL 4 MG IVP (17:55)
--- NOTE | 2024-02-21 18:25 | ANE.PACU2 ---
Inpatient post-anesthesia follow up: Airway intact: Yes Vital signs: Temperature 97.8 F Pulse Rate 93 Respiratory Rate 16 Blood Pressure 170/85 Pulse Oximetry 92 Oxygen Delivery Me thod Nasal Cannula Oxygen Flow Rate 1 Fraction of Inspir ed Oxygen 2 Hydration adequate: Yes Nausea and vomiting: No Pain level: 1 Mental status: Baseline
== END 2024-02-21 18:25 | disposition home or self-care (01) ==
PROVIDERS: PCP Nurse Practitioner Family; Visit Provider Student in an Organized Health Care Education/Training Program
PROC: (CPT 25609; principal; 2024-02-21 15:40)
DX: S52.571A Other intraarticular fracture of lower end of right radius, initial encounter for closed fracture (principal); X58.XXXA Exposure to other specified factors, initial encounter; G47.33 Obstructive sleep apnea (adult) (pediatric); J44.9 Chronic obstructive pulmonary disease, unspecified; K21.9 Gastro-esophageal reflux disease without esophagitis; I10 Essential (primary) hypertension; F32.A Depression, unspecified; E10.9 Type 1 diabetes mellitus without complications; E03.9 Hypothyroidism, unspecified
CPT/HCPCS: 25609; 36416; 73100; 76000; 82962; C1713; J0131; J1100; J2405; J2704; J3010; J3490; J7030

== ENCOUNTER → 2024-03-07 14:52 | Outpatient (BNVA) | payer MEDICARE, SELFPAY | PROVIDERS: PCP Nurse Practitioner Family; Visit Provider Physician Assistant | DX: S52.501D Unspecified fracture of the lower end of right radius, subsequent encounter for closed fracture with routine healing (principal); Z98.890 Other specified postprocedural states; X58.XXXD Exposure to other specified factors, subsequent encounter | CPT/HCPCS: 73110 ==

== ENCOUNTER 2024-03-07 15:52 | Outpatient (CLI) | payer MEDICARE, SELFPAY | END 2024-03-07 15:53 | disposition home or self-care (01) | LOC: SPT 15:53 | PROVIDERS: PCP Nurse Practitioner Family; Visit Provider Physician Assistant | DX: Z47.89 Encounter for other orthopedic aftercare (principal) | CPT/HCPCS: L3908 ==

== ENCOUNTER → 2024-03-21 11:00 | Outpatient (BNVA) | payer MEDICARE, SELFPAY | PROVIDERS: PCP Nurse Practitioner Family; Visit Provider Physician Assistant | DX: Z98.890 Other specified postprocedural states (principal); S52.501D Unspecified fracture of the lower end of right radius, subsequent encounter for closed fracture with routine healing; X58.XXXD Exposure to other specified factors, subsequent encounter | CPT/HCPCS: 73110; 99024 ==

== ENCOUNTER 2024-03-24 06:00 | Outpatient (RCR) | payer MEDICARE, SELFPAY | END 2024-04-08 23:59 | disposition home or self-care (01) | LOC: SOT 06:00 | PROVIDERS: Visit Provider Physician Assistant | DX: S52.501A Unspecified fracture of the lower end of right radius, initial encounter for closed fracture (principal); X58.XXXA Exposure to other specified factors, initial encounter | CPT/HCPCS: 97022; 97110; 97140; 97165; 97530 ==

== ENCOUNTER → 2024-04-04 10:54 | Outpatient (BNVA) | payer MEDICARE, SELFPAY | PROVIDERS: PCP Nurse Practitioner Family; Visit Provider Physician Assistant | DX: Z98.890 Other specified postprocedural states (principal); S52.501D Unspecified fracture of the lower end of right radius, subsequent encounter for closed fracture with routine healing; X58.XXXD Exposure to other specified factors, subsequent encounter | CPT/HCPCS: 73110; 99024 ==

== ENCOUNTER 2024-04-05 08:42 | Outpatient (CLI) | payer MEDICARE, SELFPAY ==
--- NOTE | 2024-04-05 08:46 | MM_ITS ---
WS: [id number] BILATERAL 3D TOMOSYNTHESIS DIGITAL SCREENING MAMMOGRAM WITH CAD CLINICAL INFORMATION: SCREENING HISTORY: Screening mammogram. No current complaints. COMPARISON: 2022 TECHNIQUE: Bilateral CC and MLO views. FINDINGS: Fatty-replaced breasts bilaterally. No suspicious focal mass, asymmetry, calcifications, or j2ee architect ural distortion. No evidence of malignancy. Incidental punctate and lucent centered calcifications. B iopsy clip RIGHT breast. MM/MM [facility] tomosynthesis [id number] IMPRESSION: DENSITY: The breasts are almost entirely fatty. BI-RADS: 2 - Benign. FOLLOW UP: 1 Year Follow-up Recommend return to annual screening mammography.
== END 2024-04-05 08:43 | disposition home or self-care (01) ==
LOC: RAD 08:43
PROVIDERS: PCP Nurse Practitioner Family; Visit Provider Nurse Practitioner Family
DX: Z12.31 Encounter for screening mammogram for malignant neoplasm of breast (principal); R92.313 Mammographic fatty tissue density, bilateral breasts; R92.1 Mammographic calcification found on diagnostic imaging of breast
CPT/HCPCS: 77063; 77067

== ENCOUNTER 2024-04-09 06:00 | Outpatient (RCR) | payer MEDICARE, SELFPAY | END 2024-05-09 23:59 | disposition home or self-care (01) | LOC: SOT 06:00 | PROVIDERS: PCP Nurse Practitioner Family; Visit Provider Physician Assistant | DX: S52.571A Other intraarticular fracture of lower end of right radius, initial encounter for closed fracture (principal); Z98.890 Other specified postprocedural states; X58.XXXA Exposure to other specified factors, initial encounter | CPT/HCPCS: 97022; 97110; 97140 ==

== ENCOUNTER → 2024-05-05 11:02 | Outpatient (BNVA) | payer MEDICARE, SELFPAY | PROVIDERS: PCP Nurse Practitioner Family; Visit Provider Physician Assistant | DX: Z98.890 Other specified postprocedural states (principal); S52.501D Unspecified fracture of the lower end of right radius, subsequent encounter for closed fracture with routine healing; X58.XXXD Exposure to other specified factors, subsequent encounter | CPT/HCPCS: 73110; 99024 ==

== ENCOUNTER → 2024-05-09 07:45 | Outpatient (BNVA) | payer MEDICARE, SELFPAY | PROVIDERS: PCP Nurse Practitioner Family; Visit Provider Podiatrist Foot & Ankle Surgery | DX: L84 Corns and callosities (principal); E11.42 Type 2 diabetes mellitus with diabetic polyneuropathy; L60.3 Nail dystrophy; I73.9 Peripheral vascular disease, unspecified | CPT/HCPCS: 11056; 11721 ==

== ENCOUNTER 2024-05-10 06:00 | Outpatient (RCR) | payer MEDICARE, SELFPAY | END 2024-06-09 23:59 | disposition home or self-care (01) | LOC: SOT 06:00 | PROVIDERS: PCP Nurse Practitioner Family; Visit Provider Physician Assistant | DX: S52.501A Unspecified fracture of the lower end of right radius, initial encounter for closed fracture (principal); X58.XXXA Exposure to other specified factors, initial encounter | CPT/HCPCS: 97022; 97110; 97140 ==

== ENCOUNTER 2024-06-10 06:00 | Outpatient (RCR) | payer MEDICARE, SELFPAY | END 2024-07-07 23:59 | disposition home or self-care (01) | LOC: SOT 06:00 | PROVIDERS: PCP Nurse Practitioner Family; Visit Provider Physician Assistant | DX: S52.501A Unspecified fracture of the lower end of right radius, initial encounter for closed fracture (principal); Z87.81 Personal history of (healed) traumatic fracture; Z98.890 Other specified postprocedural states | CPT/HCPCS: 97022; 97110 ==

== ENCOUNTER → 2024-08-08 07:44 | Outpatient (BNVA) | payer MEDICARE, SELFPAY | PROVIDERS: PCP Nurse Practitioner Family; Visit Provider Podiatrist Foot & Ankle Surgery | DX: E11.42 Type 2 diabetes mellitus with diabetic polyneuropathy (principal); L60.3 Nail dystrophy; L84 Corns and callosities; I73.9 Peripheral vascular disease, unspecified | CPT/HCPCS: 11056; 11721 ==

== ENCOUNTER → 2024-11-08 08:21 | Outpatient (BNVA) | payer MEDICARE, SELFPAY | PROVIDERS: PCP Nurse Practitioner Family; Visit Provider Podiatrist Foot & Ankle Surgery | DX: E11.42 Type 2 diabetes mellitus with diabetic polyneuropathy (principal); L60.8 Other nail disorders; L84 Corns and callosities; L60.3 Nail dystrophy; I73.9 Peripheral vascular disease, unspecified | CPT/HCPCS: 11056; 11721 ==

== ENCOUNTER 2025-01-03 07:21 | Outpatient (CLI) | payer MEDICARE, SELFPAY ==
--- NOTE | 2025-01-03 07:25 | CT_ITS ---
WS: [id number] LDCT LUNG CANCER SCREENING HISTORY: NICOTINE DEPENDENCE,CIGARETTES TECHNIQUE: Axial imaging performed from the apices to 1 cm below the costophrenic angles. Coronal and sagittal reformats are submitted with axial MIP series. All CT scans at [facility] use at least one of these dose optimization techniques: automated exposure control; mA and/or kV adjustment per patient size (includes targeted exams where dose is matched to clinical indication); or iterative reconstruction. DLP: 204.62 mGy.cm DIvol: Mean CTDIvol: 5.50 (mGy) COMPARISON: 12/10/2023 Diagnostic quality: Satisfactory Lungs: Hyperexpanded lungs with mild hazy attenuation throughout the lungs. New 5 mm slightly spiculated nodule medial RIGHT lower lobe, image 170 series 4. No pneumonia. No endobronchial lesions. Thin septation of mucous in the proximal RIGHT mainstem bronchus. Heart: Normal size heart with no pericardial effusion.. Other findings: Moderate atherosclerotic plaque within the aortic arch. Pulmonary artery is dilated to 3.5 cm. Small mediastinal and hilar lymph nodes. Hepatic steatosis. Prior cholecystectomy. Normal adrenal glands. CT/CT lung screening [id number] IMPRESSION: LUNG-RADS: 3-Probably Benign FOLLOW UP: 6 Month LDCT OTHER FINDINGS (S MODIFIER): None.
== END 2025-01-03 07:22 | disposition home or self-care (01) ==
LOC: RAD 07:22
PROVIDERS: PCP Nurse Practitioner Family; Visit Provider Nurse Practitioner Family
DX: Z12.2 Encounter for screening for malignant neoplasm of respiratory organs (principal); F17.210 Nicotine dependence, cigarettes, uncomplicated; R91.8 Other nonspecific abnormal finding of lung field; R91.1 Solitary pulmonary nodule; I70.0 Atherosclerosis of aorta; I28.1 Aneurysm of pulmonary artery; R59.0 Localized enlarged lymph nodes; K76.0 Fatty (change of) liver, not elsewhere classified; Z90.49 Acquired absence of other specified parts of digestive tract
CPT/HCPCS: 71271

== ENCOUNTER → 2025-02-12 09:53 | Outpatient (BNVA) | payer MEDICARE, SELFPAY | PROVIDERS: PCP Nurse Practitioner Family; Visit Provider Podiatrist Foot & Ankle Surgery | DX: E11.42 Type 2 diabetes mellitus with diabetic polyneuropathy (principal); L60.3 Nail dystrophy; L84 Corns and callosities; E11.8 Type 2 diabetes mellitus with unspecified complications; L60.8 Other nail disorders; I73.9 Peripheral vascular disease, unspecified | CPT/HCPCS: 11055; 11721 ==

== ENCOUNTER 2025-04-17 08:00 | Outpatient (CLI) | payer MEDICARE, SELFPAY ==
--- NOTE | 2025-04-17 08:08 | MM_ITS ---
WS: [id number] BILATERAL 3D TOMOSYNTHESIS DIGITAL SCREENING MAMMOGRAPHY WITH CAD CLINICAL INFORMATION: SCREENING HISTORY: Screening mammogram. No current complaints. COMPARISON: 2023 TECHNIQUE: Bilateral CC and MLO views. FINDINGS: Scattered fibroglandular densities bilaterally. Biopsy clip anterior RIGHT breast. Scattered benign calcifications. Small ovoid nodular density anterior LEFT breast measuring 5 mm. This is best seen on the cc view and localizes to the central anterior breast slightly lateral to the nipple with slight s urrounding architectural distortion. Recommend LEFT breast diagnostic mammography and ultrasound if persistent. Unremarkable RIGHT breast MM/MM [facility] tomosynthesis [id number] IMPRESSION: DENSITY: There are scattered areas of fibroglandular density. BI-RADS: 0 - Incomplete: Need additional imaging evaluation. FOLLOW UP: Need Additional Imaging Recommend LEFT breast diagnostic mammography and ultrasound if persistent.
== END 2025-04-17 08:01 | disposition home or self-care (01) ==
LOC: RAD 08:01
PROVIDERS: PCP Nurse Practitioner Family; Visit Provider Nurse Practitioner Family
DX: Z12.31 Encounter for screening mammogram for malignant neoplasm of breast (principal); R92.323 Mammographic fibroglandular density, bilateral breasts; R92.1 Mammographic calcification found on diagnostic imaging of breast; N63.42 Unspecified lump in left breast, subareolar
CPT/HCPCS: 77063; 77067